=== PATIENT | female | born 1990 | race Caucasian/White ===

== ENCOUNTER → 2018-11-25 09:09 | Outpatient (CLI) | payer OTHER, SELFPAY ==
[2018-11-25 08:33] VITALS: BMI 33.7
[2018-11-25 09:39] LABS: Absolute Lymphocyte Count 1.62 X10^3/ul (0.83-4.51); Absolute Neutrophil Count 7.5 X10^3/uL (2.0-7.7); Basophil# 0.03 X10^3/uL; Basophil% 0.3 % (0-1); Eosinophil# 0.05 X10^3/uL; Eosinophils% 0.5 % (0-5); Hematocrit 38.5 % (37-47); Hemoglobin 13.4 g/dl (12.0-15.0); Lymphocyte # 1.62 X10^3/ul (4.0); Lymphocyte % 16.4 % (19-41); Mean Corp Hgb Conc 34.8 g/gl (32-36); Mean Corpuscular Hgb 30.8 pg (27.0-32.0); Mean Corpuscular Volume 88.5 fL (81-99); Mean Platelet Vol. 10.3 fl (6.2-12.0); Monocyte# 0.61 X10^3/uL; Monocyte% 6.2 % (0-10); Neutrophil # 7.54 X10^3/uL (2.7-7.7); Neutrophil % 76.4 % (47-70); Platelet Count 302 K/mm3 (150-450); RBC Distribution Width CV 11.7 % (11.6-14.6); RBC Distribution Width SD 37.3 fl (35.1-43.9); Red Blood Count 4.35 M/mm3 (4.2-5.4); White Blood Count 9.9 K/mm3 (4.4-11.0)
[2018-11-25 09:42] LABS: POSITIVE COUNT NO; POSITIVE DIFFERENTIAL NO; POSITIVE MORPHOLOGY NO
[2018-11-25 10:58] LABS: HIV - WCH Non-Reactive (Nonreactive); Rubella IgG 41.7 IU/mL
[2018-11-25 20:00] LABS: Chlamydia Trachomatis by PCR Negative (Negative); Neisserai gonorrhoeae by PCR Negative (Negative); Probe Check PASS; Sample Adequacy Control PASS; Specimen Processing Control PASS
[2018-11-27 03:39] LABS: Rapid Plasmin Reagin (RPR) NONREACTIVE (NONREACTIVE)
[2018-11-27 12:13] LABS: HEPATITIS B SURFACE AG Negative (Negative)
[2018-11-28 14:36] LABS: HPV Reflexed? NOT INDICATED
== END ==
PROVIDERS: Referring Provider Obstetrics & Gynecology; Visit Provider Obstetrics & Gynecology
DX: Z34.90 Encounter for supervision of normal pregnancy, unspecified, unspecified trimester (principal); Z12.4 Encounter for screening for malignant neoplasm of cervix
CPT/HCPCS: 36415; 85025; 86592; 86703; 86762; 86850; 86900; 87340; 87491; 87591; 87624; 88175; G0145

== ENCOUNTER → 2019-04-13 12:27 | Outpatient (CLI) | payer OTHER, SELFPAY ==
[2019-04-13 11:38] VITALS: BMI 29.4
[2019-04-13 13:35] LABS: Absolute Lymphocyte Count 1.81 X10^3/uL (0.83-4.51); Absolute Neutrophil Count 10.4 X10^3/uL (2.0-7.7); Basophil# 0.04 X10^3/uL; Basophil% 0.3 % (0-1); Eosinophil# 0.05 X10^3/uL; Eosinophils% 0.4 % (0-5); Hematocrit 36.1 % (37-47); Hemoglobin 12.1 g/dL (12.0-15.0); Lymphocyte # 1.81 X10^3/ul (4.0); Lymphocyte % 13.8 % (19-41); Mean Corp Hgb Conc 33.5 g/dL (32-36); Mean Corpuscular Hgb 31.4 pg (27.0-32.0); Mean Corpuscular Volume 93.8 fL (81-99); Mean Platelet Vol. 10.1 fl (6.2-12.0); Monocyte# 0.73 X10^3/uL; Monocyte% 5.6 % (0-10); NRBC Flagged by Analyzer 0 % (0-5); Neutrophil # 10.41 X10^3/uL (2.7-7.7); Neutrophil % 79.3 % (47-70); Platelet Count 286 K/mm3 (150-450); RBC Distribution Width CV 12.2 % (11.6-14.6); RBC Distribution Width SD 41.8 fl (35.1-43.9); Red Blood Count 3.85 M/mm3 (4.2-5.4); White Blood Count 13.1 K/mm3 (4.4-11.0)
[2019-04-13 14:01] LABS: Glucose Challenge Gest 1H 50g 110 mg/dL (70-140)
== END ==
PROVIDERS: Referring Provider Obstetrics & Gynecology; Visit Provider Obstetrics & Gynecology
DX: Z34.90 Encounter for supervision of normal pregnancy, unspecified, unspecified trimester (principal)
CPT/HCPCS: 36415; 82950; 85025

== ENCOUNTER → 2019-06-10 16:11 | Outpatient (CLI) | payer OTHER, SELFPAY ==
[2019-06-10 14:01] VITALS: BMI 30.2
== END ==
PROVIDERS: Referring Provider Nurse Practitioner Women's Health; Visit Provider Nurse Practitioner Women's Health
DX: Z34.82 Encounter for supervision of other normal pregnancy, second trimester (principal)
CPT/HCPCS: 87081

== ENCOUNTER 2019-06-18 09:54 | Outpatient (CLI) | payer OTHER, SELFPAY ==
[2019-06-18 09:43] VITALS: BMI 33.3
[2019-06-18 10:15] LABS: Protein, Urine (Random) 8.1 mg/dL (<11.9); Protein:Creat Ratio 276 mg/g CRE (0-200)
[2019-06-18 11:10] LABS: Hematocrit 35.6 % (37-47); Hemoglobin 12.1 g/dL (12.0-15.0); Mean Corpuscular Hgb 31.6 pg (27.0-32.0); Mean Platelet Vol. 10.6 fl (6.2-12.0); Platelet Count 248 K/mm3 (150-450); RBC Distribution Width CV 12.8 % (11.6-14.6); RBC Distribution Width SD 43.5 fl (35.1-43.9); Red Blood Count 3.83 M/mm3 (4.2-5.4); White Blood Count 15.2 K/mm3 (4.4-11.0)
[2019-06-18 11:14] VITALS: BMI 33.1
[2019-06-18 11:31] LABS: Prothrombin Time (Protime)PT. 13.2 SECONDS (11.7-14.9)
[2019-06-18 11:39] LABS: AST(SGOT) 17 U/L (15-37); Alanine Aminotransfer ALT/SGPT 16 U/L (13-56); Creatinine, Serum 0.71 mg/dL (0.55-1.02); EST Glomerular Filtration Rate 103 mL/min (>60); Est Glom Filt Rate - Afr Amer 124 mL/min (>60); Estimated Creatinine Clearance 100.05 ml/min; Uric Acid 6.1 mg/dL (2.6-6.0)
--- NOTE | 2019-06-18 16:09 | OB.TRI.PN_ITS ---
Progress Notes Date of Service: 06/18/19 Progress Note: Patient presents for triage evaluation secondary to elevated blood pressure in the office. Normal blood pressures here in triage and normal labs negative proteinuria FHT: 120 Moderate variability reactive no decelerations category I tracing [place]: Irregular contractions Assessment and plan: Elevated blood pressure and reactive NST, reassuring maternal and status patient discharged to home to follow-up again next week. See problem list details for additional plan information. Laboratory Studies: Laboratory Tests 06/18/19 06/18/19 06/18/19 Range/Units 10:55 10:55 10:55 WBC 15.2 H (4.4-11.0) K/mm3 RBC 3.83 L (4.2-5.4) M/mm3 Hgb 12.1 (12.0-15.0) g/dL Hct 35.6 L (37-47) % MCV 93.0 (81-99) fL MCH 31.6 (27.0-32.0) pg MCHC 34.0 (32-36) g/dL RDW Std Deviation 43.5 (35.1-43.9) fl RDW Coeff of Sasha 12.8 (11.6-14.6) % Plt Count 248 (150-450) K/mm3 MPV 10.6 (6.2-12.0) fl PT 13.2 (11.7-14.9) SECONDS INR 1.0 APTT 27.0 (24.1-36.2) Seconds Creatinine 0.71 (0.55-1.02) mg/dL Estim Creat Clear Calc 100.05 ml/min Est GFR (MDRD) Af Amer 124 (>60) mL/min Est GFR (MDRD) Non-Af 103 (>60) mL/min Uric Acid 6.1 H (2.6-6.0) mg/dL AST 17 (15-37) U/L ALT 16 (13-56) U/L U Random Total Protein (<11.9) mg/dL Urine Creatinine (NO RANGE EST.) mg/dL Protein/Creatinin Ratio (0-200) mg/g CRE 06/18/19 Range/Units 09:55 WBC (4.4-11.0) K/mm3 RBC (4.2-5.4) M/mm3 Hgb (12.0-15.0) g/dL Hct (37-47) % MCV (81-99) fL MCH (27.0-32.0) pg MCHC (32-36) g/dL RDW Std Deviation (35.1-43.9) fl RDW Coeff of Sasha (11.6-14.6) % Plt Count (150-450) K/mm3 MPV (6.2-12.0) fl PT (11.7-14.9) SECONDS INR APTT (24.1-36.2) Seconds Creatinine (0.55-1.02) mg/dL Estim Creat Clear Calc ml/min Est GFR (MDRD) Af Amer (>60) mL/min Est GFR (MDRD) Non-Af (>60) mL/min Uric Acid (2.6-6.0) mg/dL AST (15-37) U/L ALT (13-56) U/L U Random Total Protein 8.1 (<11.9) mg/dL Urine Creatinine 29.30 (NO RANGE EST.) mg/dL Protein/Creatinin Ratio 276 H (0-200) mg/g CRE - Problem List (1) Elevated blood pressure affecting in third trimester, antepartum Status: Acute Comment: 06/18- to l and d for eval Multi Select Codes - Urinary/Genital Urinary/Genital CPT Codes: 85221-51 non-stress test Interp
== END 2019-06-18 10:25 | disposition home or self-care (01) ==
LOC: LABSPEC 09:54 → OBT 10:27
PROVIDERS: Referring Provider Obstetrics & Gynecology; Visit Provider Obstetrics & Gynecology
DX: O26.893 Other specified pregnancy related conditions, third trimester (principal); R03.0 Elevated blood-pressure reading, without diagnosis of hypertension; Z3A.00 Weeks of gestation of pregnancy not specified
CPT/HCPCS: 36415; 59025; 59050; 82565; 82570; 84156; 84450; 84460; 84550; 85027; 85610; 85730; 99218; G0378

== ENCOUNTER 2019-06-23 12:32 | Outpatient (CLI) | payer OTHER, SELFPAY ==
[2019-06-23 12:48] VITALS: BMI 33.5
[2019-06-23 13:11] LABS: Hematocrit 35.6 % (37-47); Hemoglobin 12.2 g/dL (12.0-15.0); Mean Corp Hgb Conc 34.3 g/dL (32-36); Mean Corpuscular Hgb 32.1 pg (27.0-32.0); Mean Corpuscular Volume 93.7 fL (81-99); Mean Platelet Vol. 10.6 fl (6.2-12.0); Platelet Count 237 K/mm3 (150-450); RBC Distribution Width CV 12.5 % (11.6-14.6); RBC Distribution Width SD 43.3 fl (35.1-43.9)
[2019-06-23 13:21] LABS: Protein, Urine (Random) < 6.0 mg/dL (<11.9); Protein:Creat Ratio 161 mg/g CRE (0-200)
[2019-06-23 13:26] LABS: Prothrombin Time (Protime)PT. 13.4 SECONDS (11.7-14.9)
[2019-06-23 13:27] LABS: Partial Thromboplast Time 27.8 Seconds (24.1-36.2)
[2019-06-23 13:30] LABS: AST(SGOT) 16 U/L (15-37); Alanine Aminotransfer ALT/SGPT 15 U/L (13-56); Creatinine, Serum 0.71 mg/dL (0.55-1.02); EST Glomerular Filtration Rate 103 mL/min (>60); Est Glom Filt Rate - Afr Amer 124 mL/min (>60); Estimated Creatinine Clearance 100.05 ml/min
[2019-06-23] MEDS: Acetaminophen 500 MG Tablet 1000 MG PO (13:39)
--- NOTE | 2019-06-23 15:07 | NURSING ---
Clarifying with pt that headache is not severe and is what prompted her to check blood pressure but that blood pressure of 140's/80's is what prompted her to seek treatment. Headache is resolved with tylenol and she states she feels fine to be discharged without being seen by MD. Dr. Macedo consulted and ok for pt discharge with blood pressure and labs WNL and headache resolved.
--- NOTE | 2019-06-26 01:05 | OB.TRI.PN ---
Progress Notes Date of Service: 06/23/19 Progress Note: elevate dbps in office and headache- resolved with tylenol, repeat nl bps and negative labs FHT: 130 Moderate variability reactive no decelerations category I tracing [place]: no regula Contractions a/p elevate dbps in and headache- nl labs and nl bps bhatt resolved reactive nst dc home Laboratory Studies: Laboratory Tests 06/23/19 06/23/19 06/23/19 Range/Units 13:00 13:00 13:00 WBC 14.0 H (4.4-11.0) K/mm3 RBC 3.80 L (4.2-5.4) M/mm3 Hgb 12.2 (12.0-15.0) g/dL Hct 35.6 L (37-47) % MCV 93.7 (81-99) fL MCH 32.1 H (27.0-32.0) pg MCHC 34.3 (32-36) g/dL RDW Std Deviation 43.3 (35.1-43.9) fl RDW Coeff of Sasha 12.5 (11.6-14.6) % Plt Count 237 (150-450) K/mm3 MPV 10.6 (6.2-12.0) fl PT 13.4 (11.7-14.9) SECONDS INR 1.0 APTT 27.8 (24.1-36.2) Seconds Creatinine 0.71 (0.55-1.02) mg/dL Estim Creat Clear Calc 100.05 ml/min Est GFR (MDRD) Af Amer 124 (>60) mL/min Est GFR (MDRD) Non-Af 103 (>60) mL/min Uric Acid 6.0 (2.6-6.0) mg/dL AST 16 (15-37) U/L ALT 15 (13-56) U/L U Random Total Protein (<11.9) mg/dL Urine Creatinine (NO RANGE EST.) mg/dL Protein/Creatinin Ratio (0-200) mg/g CRE 06/23/19 Range/Units 12:45 WBC (4.4-11.0) K/mm3 RBC (4.2-5.4) M/mm3 Hgb (12.0-15.0) g/dL Hct (37-47) % MCV (81-99) fL MCH (27.0-32.0) pg MCHC (32-36) g/dL RDW Std Deviation (35.1-43.9) fl RDW Coeff of Sasha (11.6-14.6) % Plt Count (150-450) K/mm3 MPV (6.2-12.0) fl PT (11.7-14.9) SECONDS INR APTT (24.1-36.2) Seconds Creatinine (0.55-1.02) mg/dL Estim Creat Clear Calc ml/min Est GFR (MDRD) Af Amer (>60) mL/min Est GFR (MDRD) Non-Af (>60) mL/min Uric Acid (2.6-6.0) mg/dL AST (15-37) U/L ALT (13-56) U/L U Random Total Protein < 6.0 (<11.9) mg/dL Urine Creatinine 32.30 (NO RANGE EST.) mg/dL Protein/Creatinin Ratio 161 (0-200) mg/g CRE Multi Select Codes - Urinary/Genital Urinary/Genital CPT Codes: 18425-98 non-stress test Interp
== END 2019-06-23 15:10 | disposition home or self-care (01) ==
PROVIDERS: Referring Provider Obstetrics & Gynecology; Visit Provider Obstetrics & Gynecology
DX: O26.899 Other specified pregnancy related conditions, unspecified trimester (principal); R03.0 Elevated blood-pressure reading, without diagnosis of hypertension; R51 Headache; Z3A.00 Weeks of gestation of pregnancy not specified
CPT/HCPCS: 36415; 59025; 59050; 82565; 82570; 84156; 84450; 84460; 84550; 85027; 85610; 85730; 99218; G0378

== ENCOUNTER → 2019-07-01 17:01 | Outpatient (CLI) | payer OTHER, SELFPAY ==
[2019-07-01 14:57] VITALS: BMI 34.0
[2019-07-01 17:46] LABS: Protein, Urine (Random) < 6.0 mg/dL (<11.9); Protein:Creat Ratio 109 mg/g CRE (0-200)
== END ==
PROVIDERS: Referring Provider Obstetrics & Gynecology; Visit Provider Obstetrics & Gynecology
DX: O16.3 Unspecified maternal hypertension, third trimester (principal)
CPT/HCPCS: 82570; 84156

== ENCOUNTER 2019-07-09 14:40 | Outpatient (CLI) | payer OTHER, SELFPAY ==
[2019-07-09 14:03] VITALS: BMI 34.0
[2019-07-09 14:47] VITALS: BMI 34.3
[2019-07-09 15:15] LABS: Hematocrit 38.4 % (37-47); Hemoglobin 12.9 g/dL (12.0-15.0); Mean Corp Hgb Conc 33.6 g/dL (32-36); Mean Corpuscular Hgb 31.2 pg (27.0-32.0); Mean Platelet Vol. 10.8 fl (6.2-12.0); Platelet Count 249 K/mm3 (150-450); RBC Distribution Width CV 12.7 % (11.6-14.6); RBC Distribution Width SD 43.4 fl (35.1-43.9); Red Blood Count 4.13 M/mm3 (4.2-5.4); White Blood Count 13.9 K/mm3 (4.4-11.0)
[2019-07-09 15:26] LABS: Prothrombin Time (Protime)PT. 13.1 SECONDS (11.7-14.9)
[2019-07-09 15:27] LABS: Partial Thromboplast Time 27.6 Seconds (24.1-36.2); Protein, Urine (Random) 9.3 mg/dL (<11.9); Protein:Creat Ratio 260 mg/g CRE (0-200)
[2019-07-09 15:43] LABS: AST(SGOT) 17 U/L (15-37); Alanine Aminotransfer ALT/SGPT 14 U/L (13-56); Creatinine, Serum 0.74 mg/dL (0.55-1.02); EST Glomerular Filtration Rate 99 mL/min (>60); Est Glom Filt Rate - Afr Amer 119 mL/min (>60); Estimated Creatinine Clearance 95.99 ml/min; Uric Acid 6.7 mg/dL (2.6-6.0)
--- NOTE | 2019-07-12 03:52 | OB.TRI.PN ---
Progress Notes Date of Service: 07/09/19 Progress Note: Patient presents for triage evaluation secondary to elevated blood pressures in the office FHT: 130 Moderate variability reactive no decelerations category I tracing [place]: no reg contractions Assessment and plan: Repeat blood pressures in the labs within normal limits negative proteinuria. Elevated blood pressures in reactive NST, reassuring maternal and status patient discharged to home to follow-up as scheduled expectant management. See problem list details for additional plan information. Laboratory Studies: Laboratory Tests 07/09/19 07/09/19 07/09/19 Range/Units 15:00 15:00 15:00 WBC (4.4-11.0) K/mm3 RBC (4.2-5.4) M/mm3 Hgb (12.0-15.0) g/dL Hct (37-47) % MCV (81-99) fL MCH (27.0-32.0) pg MCHC (32-36) g/dL RDW Std Deviation (35.1-43.9) fl RDW Coeff of Sasha (11.6-14.6) % Plt Count (150-450) K/mm3 MPV (6.2-12.0) fl PT 13.1 (11.7-14.9) SECONDS INR 1.0 APTT 27.6 (24.1-36.2) Seconds Creatinine 0.74 (0.55-1.02) mg/dL Estim Creat Clear Calc 95.99 ml/min Est GFR (MDRD) Af Amer 119 (>60) mL/min Est GFR (MDRD) Non-Af 99 (>60) mL/min Uric Acid 6.7 H (2.6-6.0) mg/dL AST 17 (15-37) U/L ALT 14 (13-56) U/L U Random Total Protein 9.3 (<11.9) mg/dL Urine Creatinine 35.80 (NO RANGE EST.) mg/dL Protein/Creatinin Ratio 260 H (0-200) mg/g CRE 07/09/19 Range/Units 15:00 WBC 13.9 H (4.4-11.0) K/mm3 RBC 4.13 L (4.2-5.4) M/mm3 Hgb 12.9 (12.0-15.0) g/dL Hct 38.4 (37-47) % MCV 93.0 (81-99) fL MCH 31.2 (27.0-32.0) pg MCHC 33.6 (32-36) g/dL RDW Std Deviation 43.4 (35.1-43.9) fl RDW Coeff of Sasha 12.7 (11.6-14.6) % Plt Count 249 (150-450) K/mm3 MPV 10.8 (6.2-12.0) fl PT (11.7-14.9) SECONDS INR APTT (24.1-36.2) Seconds Creatinine (0.55-1.02) mg/dL Estim Creat Clear Calc ml/min Est GFR (MDRD) Af Amer (>60) mL/min Est GFR (MDRD) Non-Af (>60) mL/min Uric Acid (2.6-6.0) mg/dL AST (15-37) U/L ALT (13-56) U/L U Random Total Protein (<11.9) mg/dL Urine Creatinine (NO RANGE EST.) mg/dL Protein/Creatinin Ratio (0-200) mg/g CRE - Problem List (1) Elevated blood pressure affecting in third trimester, antepartum Status: Acute
== END 2019-07-09 16:00 | disposition home or self-care (01) ==
LOC: WPOUT 14:44 → WP 14:46
PROVIDERS: Nurse Practitioner Women's Health; Referring Provider Obstetrics & Gynecology; Visit Provider Obstetrics & Gynecology
DX: O26.893 Other specified pregnancy related conditions, third trimester (principal); R03.0 Elevated blood-pressure reading, without diagnosis of hypertension; Z3A.00 Weeks of gestation of pregnancy not specified
CPT/HCPCS: 36415; 59025; 59050; 82565; 82570; 84156; 84450; 84460; 84550; 85027; 85610; 85730; 99218; G0378

== ENCOUNTER 2019-07-12 11:50 | Inpatient (IN) | payer OTHER, SELFPAY ==
[2019-07-12 10:02] VITALS: BMI 34.7
[2019-07-12 10:36] LABS: Protein, Urine (Random) 23.7 mg/dL (<11.9); Protein:Creat Ratio 137 mg/g CRE (0-200)
[2019-07-12 12:00] VITALS: BMI 34.3
[2019-07-12] MEDS: Lactated Ringers 1,000 ML 50 ML IV (12:20)
[2019-07-12] MEDS: Oxytocin 30 units/NS 500 ml 30 UNITS/500 ML IV.SOLN IV (12:26)
[2019-07-12 12:52] LABS: Absolute Lymphocyte Count 2.01 X10^3/uL (0.83-4.51); Absolute Neutrophil Count 11.4 X10^3/uL (2.0-7.7); Basophil# 0.06 X10^3/uL; Basophil% 0.4 % (0-1); Eosinophil# 0.05 X10^3/uL; Eosinophils% 0.3 % (0-5); Hematocrit 37.5 % (37-47); Hemoglobin 12.6 g/dL (12.0-15.0); Lymphocyte # 2.01 X10^3/ul (4.0); Mean Corp Hgb Conc 33.6 g/dL (32-36); Mean Corpuscular Hgb 31.9 pg (27.0-32.0); Mean Corpuscular Volume 94.9 fL (81-99); Mean Platelet Vol. 11.5 fl (6.2-12.0); Monocyte# 0.75 X10^3/uL; Monocyte% 5.2 % (0-10); NRBC Flagged by Analyzer 0 % (0-5); Neutrophil # 11.36 X10^3/uL (2.7-7.7); Neutrophil % 79.1 % (47-70); Platelet Count 234 K/mm3 (150-450); RBC Distribution Width CV 12.8 % (11.6-14.6); RBC Distribution Width SD 44.3 fl (35.1-43.9); Red Blood Count 3.95 M/mm3 (4.2-5.4); White Blood Count 14.4 K/mm3 (4.4-11.0)
[2019-07-12] MEDS: Lactated Ringers 500 ML 999 ML IV ×2 (14:07→15:47)
[2019-07-12] MEDS: fentaNYL-bupivacaine (epidural) 100 ML BAG EPIDURAL (15:31)
[2019-07-12] MEDS: Oxytocin 30 units/NS 500 ml 30 UNITS/500 ML IV.SOLN 334 UNITS IV (17:00)
[2019-07-12 19:43] VITALS: BP 130/82; PULSE 96; RESP 18; TEMP 37.6; O2SAT 98
--- NOTE | 2019-07-12 19:54 | NURSING ---
Epidural cath removed, blue tip intact.
[2019-07-12] MEDS: Naproxen 250 MG Tablet 500 MG PO (21:28)
[2019-07-12] MEDS: Dibucaine 30 GM Tube 1 APPLIC TOPICAL (21:33)
[2019-07-12] MEDS: Acetaminophen 500 MG Tablet 1000 MG PO (22:55)
[2019-07-13 00:35] VITALS: BP 135/62; PULSE 80; RESP 16; TEMP 36.8
[2019-07-13 03:18] VITALS: BP 136/79; PULSE 72; RESP 16; TEMP 37
--- NOTE | 2019-07-13 04:57 | HP.PCM_ITS ---
- Problem List (1) Elevated blood pressure affecting in third trimester, antepartum Status: Acute (2) General counselling and advice on contraception Status: Acute Comment: IUD 6 wk pp-No prior auth needed (3) Status: Acute Qualifiers: Comment: carrier screening declined. genetic, ntd declined. normal anatomy (4) Supervision of normal Status: Acute Qualifiers: Comment: PRR MILADY 07/08/19 gender surprise PC Andrea Kareem (5) Chronic migraine Status: Chronic History Date of Admission: 07/12/19 Final MILADY: 07/08/19 Gestational age: 40 Weeks and 5 Days History of this : This is a 29 year-old, at 40 weeks gestational age presents for IOL sec GHTN and postdates. Medical History: Medical History (Last Reviewed 07/12/19 @ 10:02 by Bella Acevedo) Chronic migraine (Chronic) G43.709 Surgical History: Surgical History (Last Reviewed 07/12/19 @ 10:02 by Bella Acevedo) [place] teeth extracted K08.409 Allergies hydrocodone bitartrate [From Vicodin] Adverse Reaction (Verified 07/12/19 10:02) Nausea Home Medications: Home Medications vitamin#30 30 mg iron-10 mg iron-folic acid 1 mg-omg3 capsule 1 cap PO DAILY cap 11/25/18 promethazine 12.5 mg tablet 12.5 mg PO Q6H PRN #120 tab 11/25/18 Smoking Status: Never smoker NST - FHR Rate Baby A Baseline: 130 Variability:: Moderate Accelerations:: 15 x 15 Decelerations:: None NST Reactive:: Yes FHR Category:: Category I Uterine Activity:: irregular History Past Pregnancies: Past Pregnancies Pregancy History 2 Elective abortions Hx Para 1 Spontaneous abortions Hx # Term Pregnancies Ectopic pregnancies Hx # Pregnancies Multiple births # of living children Past Pregnancies Del. Date Name GA/Weeks Outcome Route Bth Weight Gen Labor Lgth Anesthesia Del Locatn Provider FOB 02/18/17 Gregoria 37 live - full term 6lbs Fema le epidural [facility] Kareem Delivery Date: 02/18/17 On 09/02/18 @ 11:17 Kaley Watkins No issues during or delivery. Labs: Mom's Current Diagnoses Gestational [-induced] hypertension without significant proteinuria, unspecified trimester 07/12/19 Mom's Labs & Results 07/12/19 07/12/19 07/12/19 10:14 12:20 12:20 WBC 14.4 H RBC 3.95 L Hgb 12.6 Hct 37.5 MCV 94.9 MCH 31.9 MCHC 33.6 RDW Std Deviation 44.3 H RDW Coeff of Sasha 12.8 Plt Count 234 MPV 11.5 Immature Gran % (Auto) 1.000 H Neut % (Auto) 79.1 H Lymph % (Auto) 14.0 L [place] % (Auto) 5.2 Eos % (Auto) 0.3 Baso % (Auto) 0.4 Absolute Neuts (auto) 11.4 H Absolute Lymphs (auto) 2.01 Nucleated RBC % 0 U Random Total Protein 23.7 H Urine Creatinine 173.00 Protein/Creatinin Ratio 137 Blood Type A POSITIVE Antibody Screen NEGATIVE Course Did the patient receive Yes care? Labs Blood Type: A RH: POSITIVE RPR/VDRL/Syphilis Reactive Rubella status Immune HbSAg Negative Date Done: 11/25/18 Chlamydia Negative Gonorrhea Negative HIV/AIDS Non-Reactive Group B Strep: Negative Current Obstetrical History Gestational Diabetes No Incompetent Cervix No Infertility No IUGR No Macrosomia No Hypertension/Pre-eclampsia Yes Placenta Previa/Abruption No PTL/PROM No Uterine anomaly No Oligohydramnios No Polyhydramnios No Multiple gestation No Past Medical History Asthma Yes Diabetes No Hypertension No Heart disease No Mitral valve prolapse No Neurologic/Seizure disorder/ Yes Migraines Kidney disease No Liver disease No Varicosities No Clotting disorders/Hx of DVT No Thyroid Dysfunction No Other medical diseases No Psychiatric disorders No Major trauma No Abnormal PAP smear No Sleep apnea No Mammogram in the last 2 years No Social History Marital Status: Alleged father Kareem Hx Smoking No Smoking Status Never smoker Expected Delivery Method: Spontaneous Vaginal Review of Systems Constitutional: Denies: Fever, Malaise Eyes: Denies: Blurred vision, Vision Change HEENT: Denies: Head Aches, Visual Changes Cardiovascular: Denies: Chest Pain, Palpitations Respiratory: Denies: Cough, Shortness of Breath, Wheezing Gastrointestinal: Denies: Abdominal Pain, Diarrhea, Nausea, Vomiting Genitourinary: Denies: Dysuria, Hematuria Musculoskeletal: Denies: Joint Pain, Muscle pain Skin: Denies: Lesions, Rash Neurological: Denies: Blurred vision, Focal weakness, Headaches Psychiatric: Denies: Anxiety, Depression Endocrine: Denies: Heat/ Cold Intolerance Hematologic/ Lymphatic: Denies: Easy Bruising, Easy Bleeding Physical Exam Vitals: Vital Signs Temp Pulse Resp BP Pulse Ox 98.6 F 72 16 136/79 H 98 07/13/19 03:18 07/13/19 03:18 07/13/19 03:18 07/13/19 03:18 07/12/19 19:43 General: Alert, Cooperative, No apparent distress HEENT: Atraumatic, Normocephalic. Negative for: Thyromegaly, Lymphadenopathy Cardiovascular: Regular rate Lungs: Normal air movement Abdomen: Soft, Non Tender, Gravid Neurological: Deep Tendon Reflexes 2+/4 and Symmetrical, Neuro grossly intact. Negative for: Clonus [employer] TECHNICIAN: Normal external genitalia. Negative for: Vulvar lesions Estimated gestational size: Appropriate for gestational size Presentation: Cephalic Assessment/Plan All Active Problems (Last Reviewed 07/12/19 @ 10:02 by Bella Acevedo) Elevated blood pressure affecting in third trimester, antepartum (Acute) General counselling and advice on contraception (Acute) (Acute) Supervision of normal (Acute) Elevated blood pressure affecting in third trimester, antepartum (Resolved) This is a 29 year-old, at 40 weeks gestational age presents for IOL GHTN gbs neg preeclampsia labs WNL pit IOL epi PRN
--- NOTE | 2019-07-13 04:59 | PCM.OPRPT ---
Problem List (1) Elevated blood pressure affecting in third trimester, antepartum Status: Acute (2) General counselling and advice on contraception Status: Acute Comment: IUD 6 wk pp-No prior auth needed (3) Status: Acute Qualifiers: Comment: carrier screening declined. genetic, ntd declined. normal anatomy (4) Supervision of normal Status: Acute Qualifiers: Comment: PRR MILADY 07/08/19 gender surprise PC Andrea Kareem (5) Chronic migraine Status: Chronic Vaginal Delivery Maternal Presentation: Medically Indicated Induction iol ghtn 30w4d Method of Induction: Pitocin Medical Reason for Induction: Gestational Hypertension Amniotic Membrane Rupture Type: Spontaneous Amniotic Fluid Description: Clear Final MILADY: 07/08/19 Gestational age: 40 Weeks and 5 Days Date of Procedure: 07/12/19 Pre-Operative Diagnosis: iol ghtn Post-Operative Diagnosis: same plus bradycardia Surgery/ Procedure Performed: Vacuum Assisted Vaginal Delivery Type of Anesthesia: Epidural Description of Procedure: Patient was induced secondary to elevated blood pressures in the office and patient was at 40 weeks 4 days. Pitocin was started and patient underwent epidural anesthesia during which she had spontaneous rupture of membranes. Patient made quick cervical change to complete dilation immediately after the epidural and heart rate experienced recurrent decelerations and a bradycardia in the 70s and therefore the decision for immediate operative vaginal delivery was made. Vacuum was applied and the +2 station 2 pop offs with 3 pulls were made in a right medial lateral episiotomy was cut to shorten second stage of labor. Head delivered JACQUE without complication a loose nuchal cord x1 was easily reduced over the 's head and the anterior and posterior shoulders were delivered without complication the rest the delivered on maternal abdomen. Cord was clamped and cut with minimal delayed cord clamping but spontaneous crying and reassuring status were noted upon evaluation with pediatric support present. Cord gases were sent and cord pH arterial was 7.11 and venous was 7.18. Episiotomy was noted to have second-degree perineal laceration equivalents and therefore this was repaired in the usual fashion with 3-0 Vicryl Rapide EBL was 200 cc placenta delivered spontaneously immediately following was noted to be intact with three-vessel cord with no abnormality seen grossly. Patient and tolerated the delivery well. Presentation: JACQUE Placental Delivery Description: Spontaneous Placenta Disposition: [facility] Cord Vessel Description: 3 Vessels Nuchal Cord Compression: With compression Cord Entanglement: Around neck x 1, loose Estimated Blood Loss: 200 Infant A gender: Female (1 minute): 8 (5 minute): 9 Episiotomy Description: Right Mediolateral Laceration: Perineal Extension/lac, 2nd degree Medications given after delivery: IV Pitocin Complications: None Multi Select Codes - Urinary/Genital Urinary/Genital CPT Codes: 58602 Vaginal Delivery global pkg - vacuum assisted delivery
[2019-07-13] MEDS: Naproxen 250 MG Tablet 500 MG PO ×3 (05:42→22:32)
[2019-07-13] MEDS: Senna/Docusate Sodium 1 Tablet PO (05:43)
[2019-07-13] MEDS: Acetaminophen 500 MG Tablet 1000 MG PO ×2 (07:30→16:14)
--- NOTE | 2019-07-13 07:46 | PCM.PN.OB ---
Subjective: doing well no complaints pain controlled no CP SOB N V ambulating well tolerating po lochia moderate, going well - Physical Exam Vitals/I&O's: Vital Signs Temp Pulse Resp BP Pulse Ox 98.6 F 72 16 136/79 H 98 07/13/19 03:18 07/13/19 03:18 07/13/19 03:18 07/13/19 03:18 07/12/19 19:43 Oxygen Delivery Method Room Air Weight: 200 lb 2.876 oz Body Mass Index (BMI) 34.3 Intake and Output for Last 24 Hours 07/11/19 07/12/19 07/13/19 23:59 23:59 23:59 Intake Total 1843.50 / 1843.50 Output Total 600 / 600 Balance 1243.50 / 1243.50 General: Alert, Oriented x3 Abdomen: Non Tender, Non-Distended, - - FF below U Laboratory Results 07/12/19 10:14: U Random Total Protein 23.7 H, Urine Creatinine 173.00, Protein/Creatinin Ratio 137 07/12/19 12:20: WBC 14.4 H, RBC 3.95 L, Hgb 12.6, Hct 37.5, MCV 94.9, MCH 31.9, MCHC 33.6, RDW Std Deviation 44.3 H, RDW Coeff of Sasha 12.8, Plt Count 234, MPV 11.5, Immature Gran % (Auto) 1.000 H, Neut % (Auto) 79.1 H, Lymph % (Auto) 14.0 L, [place] % (Auto) 5.2, Eos % (Auto) 0.3, Baso % (Auto) 0.4, Absolute Neuts (auto) 11.4 H, Absolute Lymphs (auto) 2.01, Nucleated RBC % 0 07/12/19 12:20: Blood Type A POSITIVE, Antibody Screen NEGATIVE Current Medications Acetaminophen (Tylenol) 1,000 mg PO Q8H PRN PRN PRN Reason: Pain Score 1-3/10 Last Admin: 07/13/19 07:30 Dose: 1,000 mg Documented by: Bisacodyl (Dulcolax) 10 mg RECTAL UD PRN PRN Reason: If no BM Dibucaine (Dibucaine) 1 applic TOPICAL TID PRN PRN; Protocol PRN Reason: Discomfort Last Admin: 07/12/19 21:33 Dose: 1 applic Documented by: Hydrocortisone (Hytone) 1 applic TOPICAL TID PRN PRN; Protocol PRN Reason: Discomfort Methylergonovine Maleate (Methergine) 0.2 mg IM X1 PRN PRN Reason: Excess bleeding/uterine atony Naproxen (Naprosyn) 500 mg PO Q8H PRN PRN PRN Reason: Pain Score 1-3/10 Last Admin: 07/13/19 05:42 Dose: 500 mg Documented by: Ondansetron HCl (Zofran) 4 mg IV Q4H PRN PRN PRN Reason: Nausea Oxycodone HCl (Oxyir) 5 - 10 mg PO Q4H PRN PRN PRN Reason: Pain Score 4-10/10 Senna/Docusate Sodium (Senokot-S, Bita-Colace) 1 - 2 tablet PO DAILY PRN PRN PRN Reason: Constipation Last Admin: 07/13/19 05:43 Dose: 1 tablet Documented by: Simethicone (Mylicon) 80 mg PO PCHS PRN PRN Reason: Indigestion/Stomach pain Sodium Chloride () 5 - 15 ml IV UD PRN PRN Reason: SALINE FLUSH Medical Necessity - Tobacco Use Smoking Status: Never smoker Assessment/Plan All Active Problems (Last Reviewed 07/12/19 @ 10:02 by Bella Acevedo) Elevated blood pressure affecting in third trimester, antepartum (Acute) General counselling and advice on contraception (Acute) (Acute) Supervision of normal (Acute) Elevated blood pressure affecting in third trimester, antepartum (Resolved) s/p PPD # 1 1. routine post delivery care 2. breast feeding- support given 3. rh positive 4. rubella immune 5. Encouraged stool softener.
[2019-07-13 09:00] VITALS: BP 137/81; PULSE 83; RESP 18; TEMP 36.6; O2SAT 99
[2019-07-13 12:59] VITALS: BP 127/80; PULSE 73; RESP 16; TEMP 36.7
[2019-07-13 16:23] VITALS: BP 137/90; PULSE 84; RESP 14; TEMP 36.7; O2SAT 100
[2019-07-13 19:50] VITALS: BP 142/88; PULSE 90; RESP 18; TEMP 36.6
[2019-07-14] VITALS (7 sets, daily range): BP systolic 116–128; BP diastolic 80–87; PULSE 76–86; RESP 14–18; TEMP 36.4–36.5; O2SAT 98–99
[2019-07-14] MEDS: Naproxen 250 MG Tablet 500 MG PO (06:31)
--- NOTE | 2019-07-14 08:18 | PCM.PN.OB ---
Subjective: doing well no complaints pain controlled no CP SOB N V ambulating well tolerating po lochia moderate, going well - Physical Exam Vitals/I&O's: Vital Signs Temp Pulse Resp BP Pulse Ox 97.6 F L 86 16 116/86 H 98 07/14/19 07:22 07/14/19 07:22 07/14/19 07:22 07/14/19 07:22 07/14/19 07:22 Oxygen Delivery Method Room Air Weight: 200 lb 2.876 oz Body Mass Index (BMI) 34.3 Intake and Output for Last 24 Hours 07/12/19 07/13/19 07/14/19 23:59 23:59 23:59 Intake Total 1843.50 / 1843.50 Output Total 600 / 600 Balance 1243.50 / 1243.50 General: Alert, Oriented x3 Abdomen: Soft, Non Tender, Non-Distended, - - FF below U Current Medications Acetaminophen (Tylenol) 1,000 mg PO Q8H PRN PRN PRN Reason: Pain Score 1-310 Last Admin: 07/13/19 16:14 Dose: 1,000 mg Documented by: Bisacodyl (Dulcolax) 10 mg RECTAL UD PRN PRN Reason: If no BM Dibucaine (Dibucaine) 1 applic TOPICAL TID PRN PRN; Protocol PRN Reason: Discomfort Last Admin: 07/12/19 21:33 Dose: 1 applic Documented by: Hydrocortisone (Hytone) 1 applic TOPICAL TID PRN PRN; Protocol PRN Reason: Discomfort Methylergonovine Maleate (Methergine) 0.2 mg IM X1 PRN PRN Reason: Excess bleeding/uterine atony Naproxen (Naprosyn) 500 mg PO Q8H PRN PRN PRN Reason: Pain Score 1-3/10 Last Admin: 07/14/19 06:31 Dose: 500 mg Documented by: Ondansetron HCl (Zofran) 4 mg IV Q4H PRN PRN PRN Reason: Nausea Oxycodone HCl (Oxyir) 5 - 10 mg PO Q4H PRN PRN PRN Reason: Pain Score 4-10/10 Senna/Docusate Sodium (Senokot-S, Bita-Colace) 1 - 2 tablet PO DAILY PRN PRN PRN Reason: Constipation Last Admin: 07/13/19 05:43 Dose: 1 tablet Documented by: Simethicone (Mylicon) 80 mg PO PCHS PRN PRN Reason: Indigestion/Stomach pain Sodium Chloride () 5 - 15 ml IV UD PRN PRN Reason: SALINE FLUSH Medical Necessity - Tobacco Use Smoking Status: Never smoker Assessment/Plan All Active Problems (Last Reviewed 07/12/19 @ 10:02 by Bella Acevedo) Elevated blood pressure affecting in third trimester, antepartum (Acute) General counselling and advice on contraception (Acute) (Acute) Supervision of normal (Acute) Elevated blood pressure affecting in third trimester, antepartum (Resolved) s/p VAVD PPD # 2 1. routine post delivery care 2. breast feeding- support given 3. rh positive 4. rubella immune 5. stool softener encouraged 6. home today
--- NOTE | 2019-07-14 08:19 | DCINST_ITS ---
Additional Instructions: If you experience any of the following, contact your healthcare provider. * Bleeding that soaks a pad every hour for 2 hours * Fever 100.4 or higher * Unrelieved incision or abdominal pain * Swelling, redness, discharge or bleeding from your incision or episiotomy site * Your incision begins to separate * Problems urinating (including inability to urinate or burning while urinating). * Visual changes * Severe headache * Flu-like symptoms * Pain or redness in one of both of your breasts * Pain, warmth, tenderness or swelling in your legs, especially the calf area * Frequent nausea and vomiting * Symptoms of depression or anxiety If you experience any of the following, call 911 or go to the nearest Emergency Room. * Chest pain * Problems breathing * Seizure activity * Partial or complete paralysis of a body part, slurred speech, weakness or drooping of the face, or a sudden inability to walk or hold your balance Allergies/Adverse Reactions: Allergies hydrocodone bitartrate [From Vicodin] Adverse Reaction (Verified 07/12/19 10:02) Nausea Medications to take at Discharge vitamin#30 30 mg iron-10 mg iron-folic acid 1 mg-omg3 capsule 1 cap PO DAILY cap 11/25/18 promethazine 12.5 mg tablet 12.5 mg PO Q6H PRN #120 tab 11/25/18 Primary Care Physician: Care Physician,No Primary [Primary Care Provider] - Test Results: Test results from this visit will be discussed in further detail at your follow- up appointment, if applicable.
--- NOTE | 2019-07-14 08:19 | PCM.DCVAG ---
Additional Instructions: If you experience any of the following, contact your healthcare provider. Bleeding that soaks a pad every hour for 2 hours Fever 100.4 or higher Unrelieved incision or abdominal pain Swelling, redness, discharge or bleeding from your incision or episiotomy site Your incision begins to separate Problems urinating (including inability to urinate or burning while urinating). Visual changes Severe headache Flu-like symptoms Pain or redness in one of both of your breasts Pain, warmth, tenderness or swelling in your legs, especially the calf area Frequent nausea and vomiting Symptoms of depression or anxiety If you experience any of the following, call 911 or go to the nearest Emergency Room. Chest pain Problems breathing Seizure activity Partial or complete paralysis of a body part, slurred speech, weakness or drooping of the face, or a sudden inability to walk or hold your balance Allergies/Adverse Reactions: Allergies hydrocodone bitartrate [From Vicodin] Adverse Reaction (Verified 07/12/19 10:02) Nausea Medications to take at Discharge vitamin#30 30 mg iron-10 mg iron-folic acid 1 mg-omg3 capsule 1 cap PO DAILY cap 11/25/18 promethazine 12.5 mg tablet 12.5 mg PO Q6H PRN #120 tab 11/25/18 Primary Care Physician: Care Physician,No Primary [Primary Care Provider] - Test Results: Test results from this visit will be discussed in further detail at your follow-up appointment, if applicable.
[2019-07-14] MEDS: Senna/Docusate Sodium 1 Tablet PO (09:39)
--- NOTE | 2019-07-14 13:25 | CASEMGMT ---
Social Work Assessment - brief Labor and Delivery Unit Patient Address: [address] [place] [address] Phone number: [phone] Date of Referral/Notification: 07.13.2019 Time of Referral: 343 Referred By: Dr. Kaur Reason for Referral: maternal history of depression Date of Intervention: 07.14.2019 Time of Intervention: 1035 Informant: Medical record and mother of baby (MOB) Perlita Barlow History: SALVADOR is a 29-year-old female, to father of baby (FOB) Kareem Barlow. for 4 years and together for a total of 10. MOB denies any form of abuse in this relationship. SALVADOR is G2, P1 to 2 after delivering infant this admission. [place] , Courtney Barlow, was born on 07.12.2019. Also, at home the parents' older child, Gregoria Barlow, born 02.18.2017. 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 The baby?s hcpbyr-kz-zmd will babysit 4 days a week and then a separate neurosurgeon for the 5th day. FOB works at [employer] in the Agricultural sector. SALVADOR reports history of depression, eating disorder, and self-injury as a teen. MOB reports to no self-injury since high school years, no thoughts or desires to do so either. SALVADOR endorses depression after Gregoria was born, describing self as crying all the time, feeling overwhelmed and desires to just walk away from parenting. MOB reports had some feelings of hopelessness and helplessness at that time. No specific thoughts, planning or intent to kill herself, but a desire not to be around anymore. MOB reports symptoms surfaced around 6 weeks . MOB reports after an episode of feeling overwhelmed while holding the baby and having to put baby down and walk away to regroup, this was the factor that prompted MOB to get some help from OBGYN. SALVADOR reports she was on antidepressant for about a year and then off and has been doing fine. SALVADOR did have several outside stressors in that timeframe as well, which MOB believes impacted her emotional health. Additionally, SALVADOR reports that FOB did not really understand the the first time around, so level of support from the FOB was at time tenuous. MOB reports she did feel a significant improvement in mood and anxiety while on the medicine. MOB reports her sister is currently in counseling regarding depression and MOB?s mother has a history of depression. NO substance use history for MOB reported or indicted. No drug screening done during or at delivery. Assessment: No reported or identified concerns regarding infant supplies, transportation, or finances at this time. MOB reports to be feeling okay right now and to feel to be managing her mood/anxiety okay. MOB reports her is taking some time off work, which is different than last time and that FOB is also more understanding of mood issues this time around. MOB reports her mother looks out for MOB and is a support. MOB reports to feel she has an adequate support system in place. MOB reports plan to wait and see about need for medication right now, knowing that MOB is at risk for development of PPD or PPA again based on history. Explored with MOB as to what needs to be happening for MOB to get help, as it is important to have this threshold identified early on, to reduce avoidance and denial of need for different types of support. MOB reports if starts to cry a lot, mood starts impacting desire to care for the kids then this would be the time that MOB would consider going back on medicine; or if starts having thoughts of running away again. MOB reports to trust her OBGYN and would speak with the doctor about this. MOB is aware of some coping strategies to help with anxiety, as has been in counseling in the past though admits there is not a lot MOB has found to help MOB when in full on anxiety mode. MOB reports has had some benefit with grounding techniques in the past. MOB reports to feel safe currently, no thoughts/plans/intent for suicide,no thoughts of harm to others identified, and to feel that her emotional health is okay. MOB reports to also know this time around the importance of letting others help and know what is going on. MOB reports to be developing a connection to the baby and is hopeful to be able to take 12 weeks off work. This insurance underwriter sales observed bonding cues in MOB as MOB was attentive to baby, touching baby, and talking to baby. 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 MOB accepted resource packet offered on the topic of mood and anxiety disorders. Also talked with MOB about book reading or moms in the period. Encouraged MOB that she can share packet with the FOB, and also introduced the idea of fathers being at risk for mood and anxiety issues in the period. Plan: MOB and baby to home. MOB will have help from family at home going. MOB reports to feel emotional health is okay at this time and reports plan to seek out help from OBGYN should symptoms arise or start to impact care of children. No further needs requested or indicated. -PRESTON Clemons, FITNESS COACH
--- NOTE | 2019-07-14 15:22 | NURSING ---
reviewed student charting and it is complete
== END 2019-07-14 12:20 | disposition home or self-care (01) | DRG 807 ==
LOC: WP 11:53
PROVIDERS: Admitting Provider Obstetrics & Gynecology; Referring Provider Obstetrics & Gynecology; Visit Provider Obstetrics & Gynecology
DX: O13.4 Gestational [pregnancy-induced] hypertension without significant proteinuria, complicating childbirth (principal); O69.1XX0 Labor and delivery complicated by cord around neck, with compression, not applicable or unspecified; O76 Abnormality in fetal heart rate and rhythm complicating labor and delivery; O70.1 Second degree perineal laceration during delivery; O99.52 Diseases of the respiratory system complicating childbirth; J45.909 Unspecified asthma, uncomplicated; Z3A.40 40 weeks gestation of pregnancy; Z37.0 Single live birth
CPT/HCPCS: 59050; 82570; 84156; 85025; 86850; 86900; 86901; 99218; J7120; G0378; J2405

== ENCOUNTER → 2021-03-27 16:41 | Outpatient (CLI) | payer OTHER, SELFPAY ==
[2020-12-29 14:38] VITALS: BMI 34.3
[2021-03-27 18:20] LABS: Internal QC Validated? YES +Cl - CLEAR BKGD; Pregnancy, Urine Negative Negative
== END ==
PROVIDERS: Referring Provider Dermatology; Visit Provider Dermatology
DX: Z79.899 Other long term (current) drug therapy (principal); L70.0 Acne vulgaris; L70.5 Acne excoriee
CPT/HCPCS: 36415; 81025

== ENCOUNTER 2021-09-05 15:25 | Outpatient (CLI) | payer OTHER, SELFPAY ==
[2021-09-10 14:28] LABS: HPV APTIMA, High Risk Negative (Negative)
== END 2021-09-05 23:59 | disposition short-term general hospital (02) ==
LOC: LABSPEC 15:27
PROVIDERS: Visit Provider Obstetrics & Gynecology
DX: Z12.4 Encounter for screening for malignant neoplasm of cervix (principal)
CPT/HCPCS: 87624; 88175; G0145

== ENCOUNTER → 2023-10-17 | Outpatient (CLI) | payer OTHER, SELFPAY ==
[2023-10-21 07:08] LABS: Chlamydia By Nucleic Acid AMP Negative (Negative); Gonococcus By Nucleic Acid AMP Negative (Negative)
== END | disposition home or self-care (01) ==
LOC: LABSPEC 12:45
PROVIDERS: Referring Provider Advanced Practice Midwife; Visit Provider Advanced Practice Midwife
DX: Z34.90 Encounter for supervision of normal pregnancy, unspecified, unspecified trimester (principal)
CPT/HCPCS: 87086; 87088; 87491; 87591

== ENCOUNTER → 2024-01-08 | Outpatient (CLI) | payer OTHER, SELFPAY ==
[2024-01-08 08:33] LABS: Absolute Lymphocyte Count 2.22 X10^3/uL (0.83-4.51); Absolute Neutrophil Count 10.3 X10^3/uL (2.0-7.7); Basophil# 0.07 X10^3/uL; Basophil% 0.5 % (0-1); Eosinophil# 0.15 X10^3/uL; Eosinophils% 1.1 % (0-5); Hematocrit 36.3 % (37-47); Lymphocyte # 2.22 X10^3/ul (0.83-4.51); Lymphocyte % 16.1 % (19-41); Mean Corp Hgb Conc 33.1 g/dL (32-36); Mean Corpuscular Hgb 31.3 pg (27.0-32.0); Mean Corpuscular Volume 94.8 fL (81-99); Mean Platelet Vol. 9.8 fl (6.2-12.0); Monocyte% 6.5 % (0-10); NRBC Flagged by Analyzer 0 % (0-5); Neutrophil # 10.25 X10^3/uL (2.7-7.7); Neutrophil % 74.6 % (47-70); Platelet Count 293 K/mm3 (150-450); RBC Distribution Width CV 12.7 % (11.6-14.6); RBC Distribution Width SD 43.8 fl (35.1-43.9); Red Blood Count 3.83 M/mm3 (4.2-5.4); White Blood Count 13.8 K/mm3 (4.4-11.0)
[2024-01-08 19:42] LABS: HIV - WCH Non-Reactive (Nonreactive); Hepatitis B Surface Antigen Non-Reactive (Nonreactive); Hepatitis C Antibody Non-Reactive (Nonreactive); Rubella IgG Reactive (Nonreactive); Syphilis Antibodies Non-reactive
== END | disposition home or self-care (01) ==
PROVIDERS: Referring Provider Advanced Practice Midwife; Visit Provider Advanced Practice Midwife
DX: Z34.90 Encounter for supervision of normal pregnancy, unspecified, unspecified trimester (principal)
CPT/HCPCS: 36415; 85025; 86703; 86762; 86780; 86803; 86850; 86900; 86901; 87340

== ENCOUNTER → 2024-02-05 | Outpatient (CLI) | payer OTHER, SELFPAY ==
[2024-02-05 10:51] LABS: Glucose Challenge Gest 1H 50g 124 mg/dL (70-140)
== END | disposition home or self-care (01) ==
LOC: LAB 10:05
PROVIDERS: Referring Provider Obstetrics & Gynecology; Visit Provider Obstetrics & Gynecology
DX: Z13.1 Encounter for screening for diabetes mellitus (principal)
CPT/HCPCS: 36415; 82950

== ENCOUNTER → 2024-04-05 | Outpatient (CLI) | payer OTHER, SELFPAY ==
[2024-04-05 13:46] LABS: Group B Strep DNA By PCR Negative (Negative); Internal Control PASS; Probe Check PASS; Specimen Processing Control PASS
== END | disposition home or self-care (01) ==
LOC: LABSPEC 12:09
PROVIDERS: Referring Provider Advanced Practice Midwife; Visit Provider Advanced Practice Midwife
DX: O09.93 Supervision of high risk pregnancy, unspecified, third trimester (principal); Z3A.00 Weeks of gestation of pregnancy not specified
CPT/HCPCS: 87081; 87653

== ENCOUNTER 2024-04-19 08:16 | Outpatient (CLI) | payer OTHER, SELFPAY ==
[2024-04-19 08:32] VITALS: PULSE 95; RESP 15; TEMP 36.4; O2SAT 97; O2SAT 99
[2024-04-19 08:33] VITALS: BP 120/74; PULSE 96
[2024-04-19 08:38] VITALS: O2SAT 80
[2024-04-19 08:45] VITALS: BMI 33.6
--- NOTE | 2024-04-19 10:48 | OB.TRI.PN ---
Progress Notes Date of Service: 04/19/24 Progress Note: Patient presents for triage evaluation secondary to uterine contractions and back pressure. FHT: 135 Moderate variability reactive no decelerations category I tracing [place]: every 5-7 minutes Contractions, starting to become stronger Assessment and plan: early labor, labor precautions given, Reactive NST, reassuring maternal and status patient discharged to home to follow-up in office tomorrow. See problem list details for additional plan information. Charges/Coding Multi Select Codes Visit Charges Office Visit/Consults: 09173 OV L3 Est 20min Urinary/Genital Urinary/Genital CPT Codes: 00354-78 non-stress test Interp Assessment & Plan (1) Strep pharyngitis: (2) Hx of depression, currently : COMMENT: stable (3) Supervision of high-risk : QUALIFIERS: Trimester: third trimester Qualified Code(s): O09.93 - Supervision of high risk , unspecified, third trimester COMMENT: PRR, , MILADY 05/27/24, surprise Kelly Mccann Kareem (4) : QUALIFIERS: Weeks of gestation: 38 weeks Qualified Code(s): Z3A.38 - 38 weeks gestation of COMMENT: GBS neg, normal anatomy, declined genetic & carrier testing (5) ADHD: (6) Chronic migraine: COMMENT: stable on amitriptyline and imitrex used sparingly
== END 2024-04-19 11:15 | disposition home or self-care (01) ==
LOC: WPOUT 08:22 → WP 08:22
PROVIDERS: Referring Provider Advanced Practice Midwife; Visit Provider Advanced Practice Midwife
DX: O47.1 False labor at or after 37 completed weeks of gestation (principal); Z3A.38 38 weeks gestation of pregnancy; O09.93 Supervision of high risk pregnancy, unspecified, third trimester
CPT/HCPCS: 59025; 59050; 99221; G0378

== ENCOUNTER 2024-04-25 08:46 | Inpatient (IN) | payer OTHER, SELFPAY ==
[2024-04-25] VITALS (52 sets, daily range): BP systolic 81–143; BP diastolic 42–76; PULSE 37–157; RESP 15–18; TEMP 36.7–37.4; O2SAT 80–100; BMI 34.2
--- NOTE | 2024-04-25 08:45 | HP.PCM.OB_ITS ---
HPI - General HPI Narrative TAWNY HOWARD, is a 33 F who presents with SROM clear fluid IAL regular ctx no vb srom 7 am Maternal Data Information MILADY Calculator Estimated Delivery Date Method Current WG Current Estimate 04/30/24 Ultrasound #1 39w 2d Other Estimates 05/27/24 LMP (Certain) 35w 3d PFSH PFSH Medical History Asthma Contraception management Acne depression Chronic migraine Home Medications ?Medication ?Instructions ?Recorded ?Last Taken ?Type multivitamin no.47-iron fum 27 1 cap PO DAILY 10/10/23 04/24/24 22:00 History mg-folate no.1 1 mg-dha 300 mg capsule (PNV-DHA) Allergy/AdvReac Type Severity Reaction Status Date / Time hydrocodone bitartrate (From AdvReac Nausea Verified 04/25/24 08:27 Vicodin) Family History Grandfather Diabetes Cancer Father Hypertension Surgical History [place] teeth extracted Social History adopted: No household members: spouse and children number of children: 2 current occupational status: employed 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 Plans current occupational exposures/hazards: No pets and animals: No history of recent travel: No sexually active: Yes Smoking Status: Never smoker alcohol intake: never substance use type: does not use well-balanced diet: daily or most days caffeine: Yes Type: coffee Number of servings: 1 eating out: rarely or never during the past year weight has: remained stable what type of physical activity do you participate in: running and weight training frequency: 5-6 times per week duration: 30-45 minutes/day abhishek/bahai: Orthodox seatbelt use: always do you feel safe at home: Yes additional social history: -Kareem- Agricultural Patient works at [employer] History 3 Elective abortions Hx Para 2 Spontaneous abortions Hx # Term Pregnancies Ectopic pregnancies Hx # Pregnancies Multiple births # of living children 2 Past Pregnancies Del. Date Name GA/Weeks Outcome Route Bth Weight Infant Gen Labor Lgth Anesthesia Del Locatn Provider FOB 02/18/17 Gregoria 37 live - full term 6lbs Female epid ural [facility] SM Kareem 07/12/19 Kelly 40 live - full term vacuum 5# Female epid ural [facility] ALFREDO Delivery Date: 02/18/17 Last Updated by: Kaley Watkins No issues during or delivery. Delivery Date: 07/12/19 Last Updated by: Bella Acevedo 2nd degree laceration Visit Details Expected Delivery Route/Plan Labor Preferences- CB/BF classes: no labor support person: Kareem labor intervention preferences: [] pain management options preferred: epidural cut cord/dad catch: cord : undecided PP control planned: discussed discussed possible routes of delivery and associated risks: [] special requests: [] Plans Covid status: [] Flu vaccine: [] Tdap vaccine: declines Rhogam: na LARC form signed: yes movement and labor precautions reviewed. Problem list reviewed and updated with the most current plan of care details and appropriate orders placed. Relevant counseling for the gestational age provided. Continue routine care and follow up unless otherwise noted in visit notes/problem list details OB Flowsheet Initial Weight: Not Recorded Date -?-?-?-?-?-?-?-?-?-?-?-?- EGA Weight BP Urine Prot -?-?-?-?-?-?-?-?-?-?-?-?- Glucose FHR FuHt Pres Dilation -?-?-?-?--?-?-?-?-?-?-?-?- Effaced St Visit Note 10/17/23 -?-?-?-?-?-?-?-?-?-?-?-?- 12w 0d 144 lb 2 oz 120/78 -?-?-?-?-?-?-?-?-?-?-?-?- 168 -?-?-?-?-?-?-?-?-?-?-?-?- KW- CRL not cons with dates. measuring 12.0 weeks today. MILADY changed. Anatomy US ordered. 11/12/23 -?-?-?-?-?-?-?-?-?-?-?-?- 15w 5d 146 lb 112/68 Negative -?-?-?-?-?-?-?-?-?-?-?-?- Negative 156 -?-?-?-?-?-?-?-?-?-?-?-?- LC- no vb/crampi ng. declines afp. 12/12/23 -?-?-?-?-?-?-?-?-?-?-?-?- 20w 0d 155 lb 2 oz 118/66 Nega tive -?-?-?-?-?-?-?-?-?-?-?-?- Negative 145 20 -?-?-?-?-?-?-?-?-?-?-?-?- KW- no vb/crampi ng. +flutters. no concerns today. KW- no vb/cramping. +flutter s. normal anatomy. no concerns today. 01/05/24 -?-?-?-?-?-?-?-?-?-?-?-?- 23w 3d 164 lb 8 oz 122/84 Nega tive -?-?-?-?-?-?-?-?-?-?-?-?- Negative 140 -?-?-?-?-?-?-?-?-?-?-?-?- JV- pt still nee ds new [facility] labs. She states that her daughter is having a meltdown at school and can not do it today. She will come back tomorrow. 02/05/24 -?-?-?-?-?-?-?-?-?-?-?-?- 27w 6d 174 lb 117/72 -?-?-?-?-?-?-?-?-?-?-?-?- 150 28 -?-?-?-?-?-?-?-?-?-?-?-?- SM- no vb lof go od fm no regular ctx 02/16/24 -?-?-?-?-?-?-?-?-?--?-?-?- 29w 3d 176 lb 6 oz 122/78 Nega tive -?-?-?-?-?-?-?-?-?-?-?-?- Negative 146 30 -?-?-?-?-?-?-?-?-?-?-?-?- MH-No VB, LOF. G ood Fm. Denies concerns. Larc done. Declines tdap 03/02/24 -?-?-?-?-?-?-?-?-?-?-?-?- 31w 4d 181 lb 116/72 Trace -?-?-?-?-?-?-?-?-?-?-?-?- Negative 140 32 -?-?-?-?-?-?-?-?-?-?-?-?- SM- no vb lof go od fm no regular ctix 03/15/24 -?-?-?-?-?-?-?-?-?-?-?-?- 33w 3d 186 lb 114/70 Negative -?-?-?-?-?-?-?-?-?--?-?-?- Negative 147 34 -?-?-?-?-?-?-?-?-?-?-?-?- MH-No vb, LOF. G ood FM. Denies concerns 03/29/24 -?-?-?-?-?-?-?-?-?-?-?-?- 35w 3d 189 lb 126/81 Negative -?-?-?-?-?-?-?-?-?-?-?-?- Negative 140 35 -?-?-?-?-?-?-?-?-?-?-?-?- KW-no vb/toro g. good fm. 04/05/24 -?-?--?-?-?-?-?-?-?-?-?-?- 36w 3d 190 lb 125/82 Negative -?-?-?-?-?-?-?-?-?-?-?-?- Negative 140 36 2 -?-?-?-?-?-?-?-?-?-?-?-?- 70 -2 KW- no vb/ lof/ctx. good fm. GBS today 04/12/24 -?-?-?-?-?-?-?-?-?-?-?-?- 37w 3d 190 lb 120/78 Negative -?-?-?-?-?-?-?-?-?-?-?-?- Negative 163 36.5 Cephalic 2 -?-?-?-?-?-?-?-?-?-?-?-?- 30 -3 JV- very d ifficult to reach the presenting part. bedside scan shows vtx. cervix is thick and high today. 04/20/24 -?-?-?-?-?-?-?-?-?-?-?-?- 38w 4d 191 lb 4 oz 123/71 Trac e -?-?-?-?-?-?-?-?-?-?-?-?- Negative 150 38 Cephalic 4 -?-?-?-?-?-?-?-?-?-?-?-?- 60 -2 SM- no vb lof good fm co irregular ctx NST FHR Rate Baby A Baseline: 140 Variability:: Moderate Accelerations:: 15 x 15 Decelerations:: None NST Reactive:: Yes FHR Category:: Category I Uterine Activity:: q3-5 ROS Constitutional Constitutional: Reports systems reviewed and no addt'l complaints, except as documented ENT HEENT: Reports systems reviewed and no addt'l complaints, except as documented Cardiovascular Cardiovascular: Reports systems reviewed and no addt'l complaints, except as documented Respiratory/Chest Respiratory/Chest: Reports systems reviewed and no addt'l complaints, except as documented Gastrointestinal Gastrointestinal: Reports systems reviewed and no addt'l complaints, except as documented and nausea; Denies abdominal pain Genitourinary Genitourinary: Reports systems reviewed and no addt'l complaints, except as documented, contractions Details: present and frequency (regular ) and movement Details: present Musculoskeletal Musculoskeletal: Reports systems reviewed and no addt'l complaints, except as documented Integumentary Integumentary: Reports as per HPI Neurologic Neurologic: Reports systems reviewed and no addt'l complaints, except as documented Endocrine Endocrinology: Reports systems reviewed and no addt'l complaints, except as documented Vital Signs Vital Signs Vital Signs: 04/25/24 08:21 04/25/24 08:21 04/25/24 08:22 Temperature Temperature Source Pulse Rate 96 109 H Respiratory Rate Blood Pressure 124/72 H BP Systolic 124 BP Diastolic 72 Pulse Ox 04/25/24 08:22 04/25/24 08:22 04/25/24 08:22 Temperature Temperature Source Temporal Pulse Rate Respiratory Rate 16 Blood Pressure BP Systolic BP Diastolic Pulse Ox 96 04/25/24 08:22 04/25/24 08:22 Temperature 98.3 F Temperature Source Pulse Rate Respiratory Rate Blood Pressure BP Systolic BP Diastolic Pulse Ox 96 Weight Weight: 193 lb Body Mass Index (BMI) 34.2 Physical Exam Const alert, oriented x3 and healthy appearing Constitutional Narrative: uncomfortable with contractions HEENT normocephalic and moist oral mucous membranes Head and Scalp: atraumatic Neck full ROM, no lymphadenopathy, supple and thyroid normal General: trachea midline Thyroid: thyroid normal Lymph Lymphatic: no lymphadenopathy noted Chest inspection of chest normal Resp normal respiratory effort Cardio regular rate GI normal to inspection, nondistended, normoactive bowel sounds, soft to palpation and non-tender Inspection: gravid external exam normal Bimanual Exam - Vag & Uterus: uterus non-tender Manual OB Exam: estimated gestational size appropriate, presentation cephalic, dilated, effaced and station Extremity normal to inspection General Extremity: Negative for edema Skin no rashes or lesions noted Neuro deep tendon reflexes 2+ bilaterally Motor Exam: strength 5/5 throughout and clonus absent Psych mental status grossly normal Labs Labs Labs: Blood Type A POSITIVE Antibody Screen NEGATIVE Hct 36.3 % (37-47) L Hgb 12.0 g/dL (12.0-15.0) Syphilis Total Ab Non-reactive Rubella IgG Antibody Reactive (Nonreactive) Hep Bs Antigen Non-Reactive (Nonreactive) Hepatitis C Antibody Non-Reactive (Nonreactive) Chlamydia DNA (GIGI) Negative (Negative) N.gonorrhoeae DNA (GIGI) Negative (Negative) HIV 1&2 Antibody Non-Reactive (Nonreactive) Glucose 1 Hr 50 gm 124 mg/dL (70-140) Group B Strep DNA Negative (Negative) Rhogam given: No Assessment & Plan (1) Hx of depression, currently : COMMENT: stable (2) Supervision of high-risk : QUALIFIERS: Trimester: third trimester Qualified Code(s): O09.93 - Supervision of high risk , unspecified, third trimester COMMENT: PRR, , MILADY 05/27/24, surprise ALFREDO Kinney, Kelly Kareem (3) : COMMENT: GBS neg, normal anatomy, declined genetic & carrier testing (4) ADHD: (5) Chronic migraine: COMMENT: stable on amitriptyline and imitrex used sparingly (6) SROM (spontaneous rupture of membranes): PLAN: Plan Patient presents IAL, plan expectant management for , pitocin/AROM PRN if needed. Pain management: plans epidural. GBS neg. Management of any complications: none I have reviewed the PFSH and made any clinically relevant updates.
[2024-04-25] MEDS: Lactated Ringers 1,000 ML 50 ML IV (09:21)
[2024-04-25 09:24] LABS: ROM Internal Control Test YES-OK TO RESULT pt. (Internal QC); ROM Patient Test Negative (Negative); Record Kit Lot#, ROM+ K1866
[2024-04-25 09:25] LABS: Absolute Lymphocyte Count 1.34 X10^3/uL (0.83-4.51); Basophil# 0.06 X10^3/uL; Basophil% 0.3 % (0-1); Eosinophil# 0.03 X10^3/uL; Eosinophils% 0.2 % (0-5); Hematocrit 35.1 % (37-47); Hemoglobin 11.9 g/dL (12.0-15.0); Lymphocyte # 1.34 X10^3/ul (0.83-4.51); Lymphocyte % 7.4 % (19-41); Mean Corp Hgb Conc 33.9 g/dL (32-36); Mean Corpuscular Hgb 31.6 pg (27.0-32.0); Mean Corpuscular Volume 93.1 fL (81-99); Mean Platelet Vol. 9.9 fl (6.2-12.0); Monocyte# 0.73 X10^3/uL; NRBC Flagged by Analyzer 0 % (0-5); Neutrophil # 15.98 X10^3/uL (2.7-7.7); Neutrophil % 87.6 % (47-70); Platelet Count 306 K/mm3 (150-450); RBC Distribution Width CV 12.5 % (11.6-14.6); RBC Distribution Width SD 43.1 fl (35.1-43.9); Red Blood Count 3.77 M/mm3 (4.2-5.4); White Blood Count 18.2 K/mm3 (4.4-11.0)
[2024-04-25 10:12] LABS: Syphilis Antibodies Non-reactive
[2024-04-25] MEDS: Lactated Ringers 1,000 ML 999 ML IV (10:52)
[2024-04-25] MEDS: fentaNYL-bupivacaine (epidural) 100 ML BAG EPIDURAL (11:57)
[2024-04-25] MEDS: LACTATED RINGERS 500 ML 999 ML IV ×2 (13:22→15:25)
[2024-04-25] MEDS: Amnioinfusion- 0.9% NS 1,000 ML IV.SOLN. 1000 ML INTRA-UTER (13:40)
[2024-04-25] MEDS: ePHEDrine Sulfate 50 MG/ML Ampul 10 MG IV (13:42)
--- NOTE | 2024-04-25 14:10 | PCM.PN.BLA ---
Progress Note cat II tracing internals placed amnioinfusion started, low bp. now resolved doing well 4-5 cm position changes and IVF bolus. overlal reassuring,. exp management
[2024-04-25] MEDS: Oxytocin 15 Units/NS 250ml 15 UNITS/250 ML IV.SOLN 334 UNITS IV (15:53)
--- NOTE | 2024-04-25 15:58 | OP.PCM_ITS ---
Assessment & Plan (1) SROM (spontaneous rupture of membranes): (2) bradycardia: (3) Vacuum-assisted vaginal delivery: COMMENT: SM VAVD girl Raimundo 39 Maternal Data Information MILADY Calculator Estimated Delivery Date Method Current WG Current Estimate 04/30/24 Ultrasound #1 39w 2d Other Estimates 05/27/24 LMP (Certain) 35w 3d Vaginal Delivery Operative Information Date of Procedure: 04/25/24 Pre-Operative Diagnosis: IAL SROM Post-Operative Diagnosis: same Surgery / Procedure Performed: Vacuum Assisted Vaginal Delivery Type of Anesthesia: Epidural Special Medications: none Estimated Blood Loss: 200 Fluids Replaced: crystalloid Findings Description of Procedure: Patient began pushing and delivered the head in the JACQUE presentation. patient began pushigna nd had a terminal bradycardia therefore a vacuum was applied and with 1 pull no pop offs for 1 minute duration, The head was delivered atraumatically . The anterior and posterior shoulders delivered without complication followed by the rest of the and the infant was placed on the maternal abdomen. Delayed cord clamping was employed for approximately 60 seconds. Cord was clamped and cut and gentle traction was applied to the cord and the placenta delivered spontaneously immediately following it was noted to be intact with three-vessel cord. The perineum and vagina were inspected and noted to have a first degree perineal laceration which was repaired in the usual fashion with 3-0 vicryl rapide. . EBL was 200 cc. Patient and infant tolerated delivery well. Amniotic Fluid Description: Clear Placental Delivery Description: Spontaneous Placenta Disposition: [facility] Cord Vessel Description: 3 Vessels Cord Entanglement: None Delayed Cord Clamping: Yes Post Vaginal Delivery Medications Given After Delivery: IV Pitocin Episiotomy Description: None Complication Complications: None Procedures Urinary/Genital [id number]: [id number] Vaginal Delivery [facility]
--- NOTE | 2024-04-25 16:01 | DCINST_ITS ---
Discharge Instructions Diet Discharge Diet: No restrictions Activity Discharge Activity: Return to Normal Activity, May Not Drive (while taking narcotic pain medications.) and May Shower May resume sexual activity in: 4-6 weeks Dressing / Incision Call your doctor if your incision/area has: Continuous Slow Oozing, Sudden Increased Bleeding, Increased Pain/ Swelling, Increased Redness and Foul Smelling Discharge Follow Up Care Please Follow Up With: Melanie Macedo MD When: Call [phone] to make an appointment with your doctor in 6 weeks. If you had elevated blood pressure or 4th degree laceration, you will need to be seen in 2 weeks. Test Results: Test results from this visit will be discussed in further detail at your follow- up appointment, if applicable. Discharge Plan Admission Admit Date/Time: 04/25/24 08:46 Attending Provider: Melanie Macedo Primary Care Provider: Care Physician,[place] Primary Discharge Orders/Prescriptions Prescriptions: No Action PNV-DHA 27 mg iron-1 mg -300 mg capsule 1 cap PO DAILY Referrals / Follow Up: Care Physician,No Primary [Primary Care Provider] - Disposition Disposition (needs filled in before D/C Order can be placed): Home, Self Care
[2024-04-25] MEDS: Oxytocin 15 Units/NS 250ml 15 UNITS/250 ML IV.SOLN 83 UNITS IV (16:55)
[2024-04-25] MEDS: Acetaminophen 500 MG Tablet 1000 MG PO (21:26)
[2024-04-26] VITALS (9 sets, daily range): BP systolic 112–129; BP diastolic 63–75; PULSE 75–92; RESP 16; TEMP 36.6–36.9; O2SAT 95–98
[2024-04-26] MEDS: Naproxen 500 MG Tablet PO (01:46)
[2024-04-26] MEDS: Acetaminophen 500 MG Tablet 1000 MG PO (04:22)
--- NOTE | 2024-04-26 11:08 | PCM.PN.OB ---
Subjective Subjective Patient doing well without complaints. Tolerating PO. Ambulating and voiding without difficulty. feeding well. Denies chest pain, shortness of breath, calf pain/swelling, fevers, chills, lightheadedness. Objective Data Objective Data Vital Signs: Vital Signs Temp Pulse Resp BP Pulse Ox O2 Del Method 97.9 F 88 16 129/69 H 98 Room Air 04/26/24 08:00 04/26/24 08:00 04/26/24 08:00 04/26/24 08:00 04/26/24 08:00 04/26/24 08:00 Oxygen Delivery Method Room Air Weight: 193 lb Body Mass Index (BMI) 34.2 Intake & Output: Intake and Output for Last 24 Hours 04/24/24 04/25/24 04/26/24 23:59 23:59 23:59 Intake Total 3285.25 / 3285.25 Output Total 1550 / 1550 Balance 1735.25 / 1735.25 Lab / Micro Data 04/25/24 09:00 ROS Constitutional Constitutional: Reports systems reviewed and no addt'l complaints, except as documented Cardiovascular Cardiovascular: Reports systems reviewed and no addt'l complaints, except as documented Respiratory/Chest Respiratory/Chest: Reports systems reviewed and no addt'l complaints, except as documented Gastrointestinal Gastrointestinal: Reports systems reviewed and no addt'l complaints, except as documented Physical Exam Const alert, oriented x3 and no apparent distress HEENT Head and Scalp: atraumatic Resp normal respiratory effort GI soft to palpation and non-tender Bimanual Exam - Vag & Uterus: uterus non-tender Uterus Palpation: uterus fundus firm (below Umbilicus) Assessment & Plan (1) Vacuum-assisted vaginal delivery: COMMENT: VAVD girl Raimundo 39 PLAN: Plan s/p vavd PPD # 1 1. routine post delivery care 2. breast feeding- support given 3. rh positive 4. rubella immune
--- NOTE | 2024-05-04 15:26 | NURSING ---
Follow up phone call made, no answer, left voicemail
== END 2024-04-26 18:00 | disposition home or self-care (01) | DRG 807 ==
LOC: WPOUT 08:52 → WP 08:52
PROVIDERS: Admitting Provider Obstetrics & Gynecology; Visit Provider Obstetrics & Gynecology
DX: O42.02 Full-term premature rupture of membranes, onset of labor within 24 hours of rupture (principal); Z37.0 Single live birth; O70.0 First degree perineal laceration during delivery; O76 Abnormality in fetal heart rate and rhythm complicating labor and delivery; Z3A.39 39 weeks gestation of pregnancy; Z87.59 Personal history of other complications of pregnancy, childbirth and the puerperium
CPT/HCPCS: 59025; 59050; 84112; 85025; 86780; 86850; 86900; 86901; 99221; J7030; J7120; G0378

== ENCOUNTER → 2024-06-21 | Outpatient (CLI) | payer OTHER, SELFPAY ==
--- NOTE | 2024-06-21 14:20 | US_ITS ---
STUDY: ULTRASOUND BREAST - LEFT REASON FOR EXAM: Female, 34 years old. Left breast lump. Patient is 8 weeks . TECHNIQUE: Axial and longitudinal images of the LEFT breast were performed with a high resolution ultrasound transducer. # OF IMAGES: 19 COMPARISON: None. FINDINGS: LEFT Breast: The lower inner quadrant of the left breast was examined with ultrasound. No sonographic abnormality is seen. US/Breast Limited Unilateral IMPRESSION: No sonographic abnormality is seen. ASSESSMENT CATEGORY: BIRADS Category 1: Negative. A letter regarding these results will be sent to the patient by the facility within 30 days. Electronically Signed: Prosper Fountain MD at 13:23 EDT ,
--- OUTSIDE RECORDS SUMMARY | 2024-06-21 18:27 | XMS RPT_ITS | CCD ---
Author Organization [facility] Inform ion Partnership 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 Name Role Phone ENDY SINGH Primary Care Physician PEPPER BURKETT Primary Care Physician [facility], Primary Care Unavailable NAVIN HUNTER Attending Unavailable JERRI PORTILLO Referring Unavailable Allergies Allergy Classification Reported Allergen(s) Allergy Type Date of Onset Reaction(s) Facility (1 source) acetaminophen / HYDROcodone; Translations: [HYDROCODONE-ACETA MINOPHEN] [facility] Acetaminophen / HYDROcodone; Translations: [acetaminophen-hyd rocodone] Drug Allergy [facility] Medications Current Medications Medication Drug Class(es) Dates Sig (Normalized) Sig (Original) acetaminophen 500 mg oral tablet (2 sources) Start: 10-01-2019 acetaminophen 500 mg oral tablet Dose : 1,000 mg = 2 tab(s), Oral, TID, PRN for pain, 0 Refill(s) Start Date: 10/01/19 Status: Ordered 24 hr amphetamine aspartate 6.25 mg / amphetamine sulfate 6.25 mg / dextroamphetamine saccharate 6.25 mg / dextroamphetamine sulfate 6.25 mg extended release oral capsule (3 sources) Central Nervous System Stimulant Start: 09-10-2022 End: 12-11-2022 Adderall XR 25 mg oral capsule, extended release Dose : 25 mg = 1 cap(s), Oral, qAM, # 30 cap(s), 0 Refill(s), Pharmacy: [id number], ADHD, 11/07/22, 161, cm, 09/02/22 13:46:00 EST, Height, 57.4, kg, 09/02/22 13:39:00 EST, Dosing Weight Start Date: 11/11/22 Stop Date: 12/11/22 Status: Ordered citalopram 20 mg oral tablet (1 source) Serotonin Reuptake Inhibitor Start: 12-28-2019 citalopram 20 mg oral tablet Dose : 20 mg = 1 tab(s), Oral, qDay, 0 Refill(s) Start Date: 12/28/19 Status: Ordered doxycycline hyclate 20 mg oral tablet (1 source) Tetracycline-class Drug Start: 01-17-2021 doxycycline 20 mg oral tablet 0 Refill(s), 67.4 Start Date: 01/17/21 Status: Ordered Hydrocortisone (1 source) Corticosteroid Start: 01-17-2021 hydrocortisone 2.5% topical cream Apply 1 jakob, Topical, BID, # 30 gram(s), 1 Refill(s), Pharmacy: [facility]/pharmacy #[id number], 161, cm, 01/17/21 8:50:00 EDT, Height, 66, kg, 01/17/21 8:50:00 EDT, Dosing Weight Start Date: 01/17/21 Status: Ordered ibuprofen 200 mg oral tablet (2 sources) Nonsteroidal Anti-inflammatory Drug Start: 10-15-2019 ibuprofen 200 mg oral tablet Dose : 400 mg = 2 tab(s), Oral, q6hr, PRN as needed for pain, 0 Refill(s) Start Date: 10/15/19 Status: Ordered spironolactone 100 mg oral tablet (1 source) Aldosterone Antagonist Start: 01-17-2021 spironolactone 100 mg oral tablet 0 Refill(s) Start Date: 01/17/21 Status: Ordered SUMAtriptan 25 mg oral tablet (2 sources) Serotonin-1b and Serotonin-1d Receptor Agonist Start: 09-02-2022 SUMAtriptan 25 mg oral tablet Dose : 25 mg = 1 tab(s), Oral, qDay, PRN as needed for migraine headache, 1 tab onset , may repeat in 2 hrs. MAX 8 tab(s)/24hrs, # 9 tab(s), 2 Refill(s), Pharmacy: [facility] #[id number], Migraine, 161, cm, 09/02/22 13:46:00 EST, Height, kg, 09/02/22 13:39:0... Start Date: 09/02/22 Status: Ordered Start: 10-01-2019 SUMAtriptan 25 mg oral tablet Dose : 25 mg = 1 tab(s), Oral, qDay, PRN as needed for migraine headache, 1 tab onset , may repeat in 2 hrs. MAX 8 tab(s)/24hrs, # 9 tab(s), 2 Refill(s), Pharmacy: [facility]/pharmacy #[id number], Migraine, 161.29, cm, 10/01/19 14:32:00 EST, Height, kg, 10/01/19 1... Start Date: 10/01/19 Status: Ordered topiramate 50 mg oral tablet (1 source) Start: 02-15-2021 topiramate 50 mg oral tablet Dose : 50 mg = 1 tab(s), Oral, prescribed by George Rios MD, 0 Refill(s) Start Date: 02/15/21 Status: Ordered Completed/Discontinued Medications Medication Drug Class(es) Dates Sig (Normalized) Sig (Original) amitriptyline hydrochloride 50 mg oral tablet (1 source) Tricyclic Antidepressant Start: 12-28-2019 End: 06-25-2020 amitriptyline 50 mg oral tablet Dose : 50 mg = 1 tab(s), Oral, qHS, # 90 tab(s), 1 Refill(s), Pharmacy: [facility]/pharmacy #[id number], Migraine, 160, cm, 10/15/19 11:30:00 EST, Height, kg, 12/28/19 13:31:00 EDT, Dosing Weight Start Date: 12/28/19 Stop Date: 06/25/20 Status: Ordered {24 (drospirenone 3 MG / Ethinyl Estradiol 0.02 MG Oral Tablet) / 4 (Inert Ingredients 1 MG Oral Tablet) } Pack [Carlota 28 Day] (1 source) Progestin, Estrogen Start: 01-17-2021 take 1 tablet by mouth once daily Carlota 3 mg-0.02 mg oral tablet Dose = 1 tab(s), Oral, Daily, # 28 tab(s), 0 Refill(s) Start Date: 01/17/21 Status: Ordered predniSONE 10 mg oral tablet (1 source) Start: 01-17-2021 End: 01-22-2021 predniSONE 10 mg oral tablet Dose : 30 mg = 3 tab(s), Oral, qDay, # 15 tab(s), 0 Refill(s), Pharmacy: [facility]/pharmacy #[id number], 161, cm, 01/17/21 8:50:00 EDT, Height, kg, 01/17/21 8:50:00 EDT, Dosing Weight Start Date: 01/17/21 Stop Date: 01/22/21 Status: Ordered Triamcinolone (1 source) Corticosteroid Start: 10-01-2019 triamcinolone 0.5% topical cream Apply 1 jakob, Topical, BID, 0 Refill(s), Cream, 67.2 Start Date: 10/01/19 Status: Ordered Carlota 3 mg-0.02 mg oral tablet (1 source) Start: 01-17-2021 take 1 tablet by mouth once daily Carlota 3 mg-0.02 mg oral tablet Dose = 1 tab(s), Oral, Daily, # 28 tab(s), 0 Refill(s) Start Date: 01/17/21 Status: Ordered Problems Problem Classification Problem Date Documented Da te Episodic/Chronic Attention-deficit, conduct, and disruptive behavior disorders (1 source) Adult attention deficit hyperactivity disorder 10-15-2021 Chronic Disorders of lipid metabolism (1 source) Hyperlipidemia 10-15-2021 Chronic Headache; including migraine (4 sources) Migraine 10-01-2019 Chronic Other lower respiratory disease (2 sources) H/O: asthma 10-01-2019 Episodic Other skin disorders (1 source) Night sweats 09-02-2022 Episodic Results Test Name Value Interpretation Reference Range Facility LABORATORYOrdered By: SYSTEM SYSTEM on 09-13-2022 Albumin BCP dye [Mass/Vol] 3.8 G/dL Invalid Interpretation Code 3.5 - 5.0 G/dL AO ADM SS Albumin/Globulin [Mass ratio] 1.0 {ratio} Invalid Interpretation Code 1.1 - 2.5 ratio AO ADM SS ALP [Catalytic activity/Vol] 57 U/L Invalid Interpretation Code 40 - 135 U/L AO ADM SS ALT With P-5'-P [Catalytic activity/Vol] 20 U/L Invalid Interpretation Code 14 - 59 U/L AO ADM SS AST With P-5'-P [Catalytic activity/Vol] 19 U/L Invalid Interpretation Code 10 - 40 U/L AO ADM SS Bilirubin [Mass/Vol] 0.7 mg/dL Invalid Interpretation Code 0.2 - 1.0 mg/dL AO ADM SS Calcium [Mass/Vol] 9.2 mg/dL Invalid Interpretation Code 8.4 - 10.2 mg/dL AO ADM SS Chloride [Moles/Vol] 106 mmol/L Invalid Interpretation Code 98 - 107 mmol/L AO ADM SS CO2 [Moles/Vol] 27 mmol/L Invalid Interpretation Code 22 - 29 mmol/L AO ADM SS Creatinine [Mass/Vol] 0.96 mg/dL Invalid Interpretation Code 0.55 - 1.02 mg/dL AO ADM SS Electrolyte Balance 8.0 mEq/L Invalid Interpretation Code 4.0 - 15.0 mEq/L AO ADM SS Free T4 [Mass/Vol] 1.21 ng/dL Invalid Interpretation Code 0.76 - 1.46 ng/dL AO ADM SS GFR 81 ml/min/1.73sqm Invalid Interpretation Code AO Chemistry S GFR Non- 67 ml/min/1.73sqm Invalid Interpretation Code AO Chemistry S Globulin 3.8 G/dL Invalid Interpretation Code AO ADM SS Glucose [Mass/Vol] 89 mg/dL Invalid Interpretation Code 70 - 105 mg/dL AO ADM SS Potassium [Moles/Vol] 5.2 mmol/L Invalid Interpretation Code 3.5 - 5.1 mmol/L AO ADM SS Protein [Mass/Vol] 7.6 G/dL Invalid Interpretation Code 6.4 - 8.2 G/dL AO ADM SS Sodium [Moles/Vol] 141 mmol/L Invalid Interpretation Code 136 - 145 mmol/L AO ADM SS TSH Qn 0.89 m[IU]/L Invalid Interpretation Code 0.36 - 3.74 mcIU/mL AO ADM SS Urea nitrogen [Mass/Vol] 15 mg/dL Invalid Interpretation Code 7 - 18 mg/dL AO ADM SS Urea nitrogen/Creatinine [Mass ratio] 16 ratio Invalid Interpretation Code 7 - 27 ratio AO ADM SS LABORATORYOrdered By: Jozef Hahn on 09-13-2022 Basophil, Absolute 0.1 103/mcL Invalid Interpretation Code 0.0 - 0.2 10^3/mcL AO Workflow SS Basophils/100 WBC (Bld) 1.1 % Invalid Interpretation Code 0.0 - 2.5 % AO Workflow SS CRP [Mass/Vol] mg/dL Invalid Interpretation Code 0.0 - 0.9 mg/dL AO Chemistry S Eosinophil, Absolute 0.1 103/mcL Invalid Interpretation Code 0.0 - 0.4 10^3/mcL AO Workflow SS Eosinophils/100 WBC (Bld) 2.0 % Invalid Interpretation Code 0.0 - 7.0 % AO Workflow SS Erythrocyte distribution width (RBC) [Ratio] 12.5 % Invalid Interpretation Code 11.5 - 14.5 % AO Workflow SS Hematocrit (Bld) [Volume fraction] 40.5 % Invalid Interpretation Code 37.0 - 47.0 % AO Workflow SS Hemoglobin (Bld) [Mass/Vol] 13.7 G/dL Invalid Interpretation Code 12.0 - 16.0 G/dL AO Workflow SS Lymphocyte, Absolute 2.0 103/mcL Invalid Interpretation Code 0.8 - 3.9 10^3/mcL AO Workflow SS Lymphocytes/100 WBC (Bld) 36.0 % Invalid Interpretation Code 10.0 - 50.0 % AO Workflow SS MCH (RBC) [Entitic mass] 30.7 pg Invalid Interpretation Code 27.0 - 31.2 pg AO Workflow SS MCHC 33.7 G/dL Invalid Interpretation Code 33.0 - 37.0 G/dL AO Workflow SS MCV (RBC) [Entitic vol] 90.9 fL Invalid Interpretation Code 80.0 - 94.0 fL AO Workflow SS Monocyte, Absolute 0.4 103/mcL Invalid Interpretation Code 0.2 - 1.0 10^3/mcL AO Workflow SS Monocytes/100 WBC (Bld) 7.8 % Invalid Interpretation Code 1.7 - 13.0 % AO Workflow SS Neutrophil, Absolute 2.9 103/mcL Invalid Interpretation Code 2.9 - 6.2 10^3/mcL AO Workflow SS Neutrophils/100 WBC (Bld) 53.1 % Invalid Interpretation Code 37.0 - 80.0 % AO Workflow SS Platelet mean volume (Bld) [Entitic vol] 8.7 fL Invalid Interpretation Code 7.4 - 10.4 fL AO Workflow SS Platelets (Bld) [#/Vol] 296 103/mcL Invalid Interpretation Code 130 - 400 10^3/mcL AO Workflow SS RBC (Bld) [#/Vol] 4.46 106/mcL Invalid Interpretation Code 4.20 - 5.40 10^6/mcL AO Workflow SS WBC (Bld) [#/Vol] 5.5 103/mcL Invalid Interpretation Code 4.6 - 10.8 10^3/mcL AO Workflow SS Direct LDLon 06-15-2021 LDL Cholesterol Direct 160 mg/dL High <100 [facility] ([place]) Comment on above: Result Comment: <100 mg/dL, Optimal 100-129 mg/dL, Near optimal/above optimal 130-159 mg/dL, Borderline high 160-189 mg/dL, High >189 mg/dL, Very high Secondary prevention optimal LDL Cholesterol levels are recommended to be < 70 mg/dL Performed By: [facility] [address] [id number] Commercial Lending Relationship Manager: Theron Smith III, M.D. CLIA#: [id number] Phone#: Performed By: #### H CGQ, ALT, LDLDCT, AST #### [address] [address] VLDL Cholesterol Test Not Indicated Normal <30 [facility] ([place]) Comment on above: Result Comment: Perf ormed By: [facility] [address] [place] [address] Commercial Lending Relationship Manager: Theron Smith III, M.D. CLIA#: [id number] Phone#: Performed By: #### H CGQ, ALT, LDLDCT, AST #### [address] [address] ALT/SGPTon 06-14-2021 ALT [Catalytic activity/Vol] 27 U/L Normal 14-59 [facility] ([place]) Comment on above: Performed By: #### H CGQ, ALT, LDLDCT, AST #### [address] [address] Masoud 06-14-2021 AST [Catalytic activity/Vol] 22 U/L Normal 10-40 [facility] ([place]) Comment on above: Performed By: #### H CGQ, ALT, LDLDCT, AST #### [address] [address] HCGQon 06-14-2021 hCG, quantitative <1.0 Normal [facility] ([place]) Comment on above: Result Comment: HCG Quantitative 3 Weeks Gestation mIU/mL 5.0 to 12.0 HCG Quantitative 4 Weeks Gestation mIU/mL 10.0 to 708.0 HCG Quantitative 5 Weeks Gestation mIU/mL 217.0 to 8245.0 HCG Quantitative 6 Weeks Gestation mIU/mL 152.0 to 32,177.0 HCG Quantitative 7 Weeks Gestation mIU/mL 4059.0 to 153,767.0 HCG Quantitative 8 Weeks Gestation mIU/mL 31,366.0 to 149,094.0 HCG Quantitative 9 Weeks Gestation mIU/mL 59,109.0 to 135,901.0 HCG Quantitative 10 Weeks Gestation mIU/mL 44,186.0 to 170,409.0 HCG Quantitative 12 Weeks Gestation mIU/mL 27,107.0 to 201,615.0 HCG Quantitative 14 Weeks Gestation mIU/mL 24,302.0 to 93,646.0 Performed By: #### H CGQ, ALT, LDLDCT, AST #### [address] [address] .Auto Diffon 06-07-2021 Basophil, Absolute 0.10 10 3/mcL Normal 0.00-0.19 [facility] ([place]) Comment on above: Performed By: #### A LT, HCGQ, LDLDCT, AST, LIPID #### [address] [address] Basophils/100 WBC (Bld) 0.7 % Normal 0.0-2.5 [facility] ([place]) Comment on above: Performed By: #### A LT, HCGQ, LDLDCT, AST, LIPID #### [address] [address] Eosinophil, Absolute 0.10 10 3/mcL Normal 0.00-0.40 A [facility] ([place]) Comment on above: Performed By: #### A LT, HCGQ, LDLDCT, AST, LIPID #### [address] [address] Eosinophils/100 WBC (Bld) 0.8 % Normal 0.0-7.0 [facility] ([place]) Comment on above: Performed By: #### A LT, HCGQ, LDLDCT, AST, LIPID #### [address] [address] Lymphocyte, Absolute 2.10 10 3/mcL Normal 0.77-3.85 A [facility] ([place]) Comment on above: Performed By: #### A LT, HCGQ, LDLDCT, AST, LIPID #### [address] [address] Lymphocytes/100 WBC (Bld) 27.1 % Normal 10.0-50.0 [facility] ([place]) Comment on above: Performed By: #### A LT, HCGQ, LDLDCT, AST, LIPID #### [address] [address] Monocyte, Absolute 0.50 10 3/mcL Normal 0.15-1.00 [facility] ([place]) Comment on above: Performed By: #### A LT, HCGQ, LDLDCT, AST, LIPID #### [address] [address] Monocytes/100 WBC (Bld) 6.4 % Normal 1.7-13.0 [facility] ([place]) Comment on above: Performed By: #### A LT, HCGQ, LDLDCT, AST, LIPID #### [address] [address] Neutrophils/100 WBC (Bld) 65.0 % Normal 37.0-80.0 [facility] ([place]) Comment on above: Performed By: #### A LT, HCGQ, LDLDCT, AST, LIPID #### [address] [address] .NEUABSon 06-07-2021 Neutrophil, Absolute 5.00 10 3/mcL Normal 2.85-6.16 A [facility] ([place] Comment on above: Performed By: #### A LT, HCGQ, LDLDCT, AST, LIPID #### [address] [address] CBCon 06-07-2021 Erythrocyte distribution width (RBC) [Ratio] 12.1 % Normal 11.5-14.5 [facility] ([place]) Comment on above: Performed By: #### L IPID, ANEU, ADIFF, FT4, TSH, CBC #### [address] [address] Hematocrit (Bld) [Volume fraction] 39.6 % Normal 37.0-47.0 [facility] ([place]) Comment on above: Performed By: #### L IPID, ANEU, ADIFF, FT4, TSH, CBC #### [place] [address] Hgb 13.5 G/dL Normal 12.0-16.0 [facility] ([place]) Comment on above: Performed By: #### L IPID, ANEU, ADIFF, FT4, TSH, CBC #### [address] [address] MCH (RBC) [Entitic mass] 30.8 pg Normal 27.0-31.2 [facility] ([place]) Comment on above: Performed By: #### L IPID, ANEU, ADIFF, FT4, TSH, CBC #### [place] [address] MCHC 34.0 G/dL Normal 33.0-37.0 [facility] ([place]) Comment on above: Performed By: #### L IPID, ANEU, ADIFF, FT4, TSH, CBC #### [place] [address] MCV (RBC) [Entitic vol] 90.5 fL Normal 80.0-94.0 [facility] ([place]) Comment on above: Performed By: #### L IPID, ANEU, ADIFF, FT4, TSH, CBC #### [place] [address] Platelet 337 10 3/mcL Normal 130-400 [facility] ([place] Comment on above: Performed By: #### L IPID, ANEU, ADIFF, FT4, TSH, CBC #### [place] [address] Platelet mean volume (Bld) [Entitic vol] 9.2 fL Normal 7.4-10.4 [facility] ([place] Comment on above: Performed By: #### L IPID, ANEU, ADIFF, FT4, TSH, CBC #### [address] [address] RBC 4.37 10 6/mcL Normal 4.20-5.40 [facility] ([place] Comment on above: Performed By: #### L IPID, ANEU, ADIFF, FT4, TSH, CBC #### [address] [address] WBC 7.60 10 3/mcL Normal 4.60-10.80 [facility] ([place] Comment on above: Performed By: #### L IPID, ANEU, ADIFF, FT4, TSH, CBC #### [address] [address] FT4on 06-07-2021 Free T4 [Mass/Vol] 1.21 ng/dL Normal 0.76-1.46 [facility] ([place]) Comment on above: Performed By: #### A LT, HCGQ, LDLDCT, AST, LIPID #### [address] [address] LABORATORYOrdered By: Nithin Young on 06-07-2021 Basophil, Absolute 0.10 103/mcL Invalid Interpretation Code 0.00 - 0.19 10^3/mcL AO Auto Heme SS Basophils/100 WBC (Bld) 0.7 % Invalid Interpretation Code 0.0 - 2.5 % AO Auto Heme SS Eosinophil, Absolute 0.10 103/mcL Invalid Interpretation Code 0.00 - 0.40 10^3/mcL AO Auto Heme SS Eosinophils/100 WBC (Bld) 0.8 % Invalid Interpretation Code 0.0 - 7.0 % AO Auto Heme SS Erythrocyte distribution width (RBC) [Ratio] 12.1 % Invalid Interpretation Code 11.5 - 14.5 % AO Auto Heme SS Hematocrit (Bld) [Volume fraction] 39.6 % Invalid Interpretation Code 37.0 - 47.0 % AO Auto Heme SS Hemoglobin (Bld) [Mass/Vol] 13.5 G/dL Invalid Interpretation Code 12.0 - 16.0 G/dL AO Auto Heme SS Lymphocyte, Absolute 2.10 103/mcL Invalid Interpretation Code 0.77 - 3.85 10^3/mcL AO Auto Heme SS Lymphocytes/100 WBC (Bld) 27.1 % Invalid Interpretation Code 10.0 - 50.0 % AO Auto Heme SS MCH (RBC) [Entitic mass] 30.8 pg Invalid Interpretation Code 27.0 - 31.2 pg AO Auto Heme SS MCHC (RBC) [Mass/Vol] 34.0 G/dL Invalid Interpretation Code 33.0 - 37.0 G/dL AO Auto Heme SS MCV (RBC) [Entitic vol] 90.5 fL Invalid Interpretation Code 80.0 - 94.0 fL AO Auto Heme SS Monocyte, Absolute 0.50 103/mcL Invalid Interpretation Code 0.15 - 1.00 10^3/mcL AO Auto Heme SS Monocytes/100 WBC (Bld) 6.4 % Invalid Interpretation Code 1.7 - 13.0 % AO Auto Heme SS Neutrophil, Absolute 5.00 103/mcL Invalid Interpretation Code 2.85 - 6.16 10^3/mcL AO Auto Heme SS Neutrophils/100 WBC (Bld) 65.0 % Invalid Interpretation Code 37.0 - 80.0 % AO Auto Heme SS Platelet mean volume (Bld) [Entitic vol] 9.2 fL Invalid Interpretation Code 7.4 - 10.4 fL AO Auto Heme SS Platelets (Bld) [#/Vol] 337 103/mcL Invalid Interpretation Code 130 - 400 10^3/mcL AO Auto Heme SS RBC (Bld) [#/Vol] 4.37 106/mcL Invalid Interpretation Code 4.20 - 5.40 10^6/mcL AO Auto Heme SS WBC (Bld) [#/Vol] 7.60 103/mcL Invalid Interpretation Code 4.60 - 10.80 10^3/mcL AO Auto Heme SS LABORATORYOrdered By: Jozef Hahn on 06-07-2021 Cholesterol [Mass/Vol] 251 mg/dL Invalid Interpretation Code 0 - 200 mg/dL AO ADM SS Cholesterol in HDL [Mass/Vol] 55 mg/dL Invalid Interpretation Code 40 - 60 mg/dL AO ADM SS Cholesterol in LDL [Mass/Vol] 165 mg/dL Invalid Interpretation Code 0 - 130 mg/dL AO ADM SS Free T4 [Mass/Vol] 1.21 ng/dL Invalid Interpretation Code 0.76 - 1.46 ng/dL AO ADM SS Triglyceride [Mass/Vol] 154 mg/dL Invalid Interpretation Code 0 - 150 mg/dL AO ADM SS TSH Qn 0.52 m[IU]/L Invalid Interpretation Code 0.36 - 3.74 mcIU/mL AO ADM SS LIPIDon 06-07-2021 Cholesterol [Mass/Vol] 251 mg/dL High 0-200 [facility] ([place]) Comment on above: Result Comment: Chol esterol Reference Interval: Less than 200 Desirable 200-239 Borderline high risk 240 and above High risk Performed By: #### A LT, HCGQ, LDLDCT, AST, LIPID #### [address] [address] Cholesterol in HDL [Mass/Vol] 55 mg/dL Normal 40-60 [facility] ([place]) Comment on above: Performed By: #### A LT, HCGQ, LDLDCT, AST, LIPID #### [address] [address] Cholesterol in LDL [Mass/Vol] 165 mg/dL High 0-130 [facility] ([place]) Comment on above: Performed By: #### A LT, HCGQ, LDLDCT, AST, LIPID #### [address] [address] Triglyceride [Mass/Vol] 154 mg/dL High 0-150 [facility] ([place]) Comment on above: Result Comment: Trig lyceride Reference Interval: Less than 150 Normal 150-199 Borderline high risk 200-499 High risk 500 or higher Very high risk Performed By: #### A LT, HCGQ, LDLDCT, AST, LIPID #### [address] [address] TSHon 06-07-2021 TSH Qn 0.52 m[IU]/L Normal 0.36-3.74 [facility] ([place]) Comment on above: Performed By: #### A LT, HCGQ, LDLDCT, AST, LIPID #### [address] [address] Direct LDLon 02-23-2021 LDL Cholesterol Direct 149 mg/dL High <100 [facility] ([place]) Comment on above: Result Comment: <100 mg/dL, Optimal 100-129 mg/dL, Near optimal/above optimal 130-159 mg/dL, Borderline high 160-189 mg/dL, High >189 mg/dL, Very high Secondary prevention optimal LDL Cholesterol levels are recommended to be < 70 mg/dL Performed By: [facility] [address] [place] [address] Commercial Lending Relationship Manager: Tehron Smith III, M.D. CLIA#: [id number] Phone#: Performed By: #### A LT, HCGQ, LDLDCT, AST, LIPID #### [address] [address] VLDL Cholesterol Test Not Indicated Normal <30 [facility] ([place]) Comment on above: Result Comment: Perf ormed By: [facility] [address] [place] [address] Commercial Lending Relationship Manager: Theron Smith III, M.D. CLIA#: [id number] Phone#: Performed By: #### A LT, HCGQ, LDLDCT, AST, LIPID #### [address] [address] ALT/SGPTon 02-22-2021 ALT [Catalytic activity/Vol] 21 U/L Normal 14-59 [facility] ([place]) Comment on above: Performed By: #### A LT, HCGQ, LDLDCT, AST, LIPID #### [address] [address] Masoud 02-22-2021 AST [Catalytic activity/Vol] 17 U/L Normal 10-40 [facility] ([place]) Comment on above: Performed By: #### A LT, HCGQ, LDLDCT, AST, LIPID #### [address] [address] HCGQon 02-22-2021 hCG, quantitative <1.0 Normal [facility] ([place]) Comment on above: Result Comment: HCG Quantitative 3 Weeks Gestation mIU/mL 5.0 to 12.0 HCG Quantitative 4 Weeks Gestation mIU/mL 10.0 to 708.0 HCG Quantitative 5 Weeks Gestation mIU/mL 217.0 to 8245.0 HCG Quantitative 6 Weeks Gestation mIU/mL 152.0 to 32,177.0 HCG Quantitative 7 Weeks Gestation mIU/mL 4059.0 to 153,767.0 HCG Quantitative 8 Weeks Gestation mIU/mL 31,366.0 to 149,094.0 HCG Quantitative 9 Weeks Gestation mIU/mL 59,109.0 to 135,901.0 HCG Quantitative 10 Weeks Gestation mIU/mL 44,186.0 to 170,409.0 HCG Quantitative 12 Weeks Gestation mIU/mL 27,107.0 to 201,615.0 HCG Quantitative 14 Weeks Gestation mIU/mL 24,302.0 to 93,646.0 Performed By: #### A LT, HCGQ, LDLDCT, AST, LIPID #### [address] [address] LIPIDon 02-22-2021 Cholesterol [Mass/Vol] 232 mg/dL High 0-200 [facility] ([place]) Comment on above: Result Comment: Chol esterol Reference Interval: Less than 200 Desirable 200-239 Borderline high risk 240 and above High risk Performed By: #### A LT, HCGQ, LDLDCT, AST, LIPID #### [address] [address] Cholesterol in HDL [Mass/Vol] 56 mg/dL Normal 40-60 [facility] ([place]) Comment on above: Performed By: #### A LT, HCGQ, LDLDCT, AST, LIPID #### [address] [address] Cholesterol in LDL [Mass/Vol] 160 mg/dL High 0-130 [facility] ([place]) Comment on above: Performed By: #### A LT, HCGQ, LDLDCT, AST, LIPID #### [address] [address] Triglyceride [Mass/Vol] 81 mg/dL Normal 0-150 [facility] ([place]) Comment on above: Result Comment: Trig lyceride Reference Interval: Less than 150 Normal 150-199 Borderline high risk 200-499 High risk 500 or higher Very high risk Performed By: #### A LT, HCGQ, LDLDCT, AST, LIPID #### J Luis [address] [address] CNOVon 03-30-2018 CNOV Office Visit (UCWSTR) ANITACHRISTAL ([id number]) 1990 FDate Time Provider Department03/30/18 1:45 PM EAMON DAMON (GAIL) [facility] During your visit today, we recorded the following information about you: Temperature Pulse Respiration Blood pressure 99.1 degrees 80/minute 20/minute 122/64 Weight 64 kgEamon Damon APRN.CNP 03/30/2018 2:22 PM SignedSubjectiveHPIHPI Barb Howard is a 27 year old female who presents today for CC ofsore throat, h/a, fatigue, ear pain. This started 5 days ago. Has triedibuprofen. Symptoms are worsened by nothing, hx of migraines. Risk factorsnone..Patient presents with:Sore Throat: TodayHeadache: x 4-5 daysEar Pain: x 4-5 days right ear painFatigue: Since last weekPAST MEDICAL HISTORYDiagnosis Date- Asthma- PMH - PAST MEDICAL HISTORY OF Color Vision - Normal- Trauma history of fracture nose, right hand fractures, left legPAST SURGICAL HISTORYProcedure Laterality Date- PAST SURGICAL HISTORY OF wisdom teethALLERGIES Vicodin [Hydrocodone-Acetaminophe n]MEDICATIONSPrenatal Hsmhngeb-Uf-Fal-Fe-FA ( VITAMIN) tab Take 1 tablet by mouth.ALBUTEROL INHALATION Inhale as instructed.pyridoxine, vitamin B6, (VITAMIN B-6) 100 mg tablet Take 100 mg by mouth oncedaily.FAMILY HISTORYProblem Relation Age of Onset- Lipids Father- Alzheimer's Disease Maternal Grandmother- Diabetes Maternal Grandfather- Arthritis Paternal Grandfather- Prostate Cancer Paternal Grandfather and colon cancer- Emphysema Maternal Uncle- Colon Cancer Maternal UncleSocial HistorySubstance Use Topics- Smoking status: Never Smoker- Smokeless tobacco: Never Used- Alcohol use NoReview of SystemsConstitutional: Negative for chills, fever and weight loss.HENT: Positive for congestion and sore throat. Negative for ear pain andnosebleeds.Respiratory : Positive for cough. Negative for shortness of breath and wheezing.Cardiovascular: Negative for chest pain.Musculoskeletal: Negative for neck pain.Skin: Negative for itching and rash.ObjectiveBlood pressure 122/64, pulse 80, temperature 37.3 ?C (99.1 ?F), resp. rate 20,weight 64 kg (141 lb), unknown if currently .Physical ExamConstitutional: She is oriented to person, place, and time and well-developed,well-valdez shed, and in no distress. Non-toxic appearance. She does not have asickly appearance. No distress.HENT:Head: Normocephalic and atraumatic.Right Ear: Hearing, tympanic membrane, external ear and ear canal normal.Left Ear: Hearing, tympanic membrane, external ear and ear canal normal.Nose: Nose normal.Mouth/Throat: Uvula is midline and mucous membranes are normal. Oropharyngealexudate and posterior oropharyngeal erythema present. No posteriororopharyngeal edema or tonsillar abscesses.Eyes: Conjunctivae and lids are normal. Pupils are equal, round, and reactiveto light. Right eye exhibits no discharge. Left eye exhibits no discharge. Noscleral icterus.Neck: Trachea normal and normal range of motion. Neck supple.Cardiovascular: Normal rate, regular rhythm and normal heart sounds.Pulmonary/Chest: Effort normal and breath sounds normal.Lymphadenopathy: She has cervical adenopathy. Right cervical: Superficial cervical adenopathy present.Neurological: She is alert and oriented to person, place, and time.Skin: No rash noted. She is not diaphoretic. ASSESSMENT/PLAN:1. Sore throat - ICD9: 462, ICD10: J02.9- suspect viral- Rapid Strep negative in the office today and Throat culture pending- Discussed supportive care treatment with fluids, rest and analgesia.- The patient should follow up in 3-5 days if symptoms persist or worsen- Call back if drooling, increased temperature, symptoms of dehydration and/orstill sick in one week- RAPID STREP TEST B/O- GROUP A STREPTOCOCCUS BY PCRPrescription instructions reviewed with patient as applicable. Patient advisedif symptoms do not improve or if symptoms worsen sooner, to contact the officefor further evaluation by their primary care physician. Potential red flagsymptoms discussed with the patient. Reviewed appropriate action plan to takeif red flag symptoms occur. Patient agreeable to treatment plan.Chan Cespedes APRN.CNP 03/30/2018 2:11 PM Signed ASSESSMENT/PLAN:1. Sore throat - ICD9: 462, ICD10: J02.9- suspect viral- Rapid Strep negative in the office today and Throat culture pending- Discussed supportive care treatment with fluids, rest and analgesia.- The patient should follow up in 3-5 days if symptoms persist or worsen- Call back if drooling, increased temperature, symptoms of dehydration and/orstill sick in one week- RAPID STREP TEST B/O- GROUP A STREPTOCOCCUS BY PCRReferring Provider: SELF [200]Allergies As of Date: 03/30/2018 Noted Allergy ReactionVICODIN (HYDROCODONE-ACETAMINOPHE *07/26/2016 8 - GI Upset 11 - VomitingDate Reviewed: 03/30/2018Reviewed by: Eamon Damon - Fully AssessedReason for Visit: Sore Throat [200] Cmt: Today Headache [52] Cmt: x 4-5 days Ear Pain [817] Cmt: x 4-5 days right ear pain Fatigue [46] Cmt: Since last weekPrimary Visit Diagnosis:Sore throat [J02.9]Order(s):RAPID STREP TEST B/O [4129251] Order #: [id number] GROUP A STREPTOCOCCUS BY PCR [SQGASPCR] Order #: [id number] FUTURE predniSONE (DELTASONE) 20 mg tabletTake 2 tablets by mouth once daily for 5 days.Disp: 10 tabletRfl: 0Prescriptions as of 03/30/2018 Sig: VITAMIN,CALCIUM,MINE* Take 1 tablet by mouth. ALBUTEROL INHALATION Inhale as instructed. PREDNISONE 20 MG TABLET Take 2 tablets by mouth once * PYRIDOXINE (VITAMIN B6) 100 M* Take 100 mg by mouth once tod*Problem List As Of Date 03/30/2018 Noted Resolved Nausea/vomiting in [O21.9] INVALID FOR*11/14/2016 More... History of asthma [Z87.09] INVALID FOR* More... Patient requested diagnostic testing [Z01.89] INVALID FOR*11/14/2016 More... Encounter for supervision of normal first pregn*INVALID FOR* More... Anxiety [F41.9] INVALID FOR* Other instructions from your clinician: ASSESSMENT/PLAN: 1. Sore throat - ICD9: 462, ICD10: J02.9 - suspect viral - Rapid Strep negative in the office today and Throat culture pending - Discussed supportive care treatment with fluids, rest and analgesia. - The patient should follow up in 3-5 days if symptoms persist or worsen - Call back if drooling, increased temperature, symptoms of dehydration and/or still sick in one week - RAPID STREP TEST B/O - GROUP A STREPTOCOCCUS BY PCRPrescriptions ordered this encounter Disp Refills Start End PREDNISONE 20 MG TABLET 10 t* 0 03/30/2018 04/04/2018 Route: ORAL Sig: Take 2 tablets by mouth once daily for 5 days. Status:Closed by EAMON DAMON CNP on 03/30/18 Normal [facility] Group A Strep by PCRon 03-30 GAS Specimen Source Throat Swab Normal [facility] Comment on above: Performed By: #### G ASPCR ####[facility], [place] [phone] Group A Strep PCR Negative Normal [facility] Comment on above: Result Comment: This test was developed and its performance characteristics determined by [facility] ([facility]).It has not been cleared or approved by the FDA. [facility] is regulated under CLIA as qualified to perform high-complexity testing. This test is used for clinical purposes. It should not be regarded as investigational or for research. Performed By: #### G ASPCR ####[facility] [address], [place] [phone] PROGRESSon 03-30-2018 Protein mass conc HNO ID: [id number] thor: Eamon (Industrial [employer]itter) Kanwal: (none)Author Type: Nurse PractitionerType: Progress NotesFiled: 03/30/2018 2:22 PMNote Text:SubjectiveHPIHPI Barb Howard is a 27 year old female who presents today for CCof sore throat, h/a, fatigue, ear pain. This started 5 days ago. Hastried ibuprofen. Symptoms are worsened by nothing, hx of migraines. Riskfactors none..Patient presents with:Sore Throat: TodayHeadache: x 4-5 daysEar Pain: x 4-5 days right ear painFatigue: Since last weekPAST MEDICAL HISTORYDiagnosis Date- Asthma- PMH - PAST MEDICAL HISTORY OF Color Vision - Normal- Trauma history of fracture nose, right hand fractures, left legPAST SURGICAL HISTORYProcedure Laterality Date- PAST SURGICAL HISTORY OF wisdom teethALLERGIES Vicodin [Hydrocodone-Acetaminophe n]MEDICATIONSPrenatal Wlphafzj-Re-Cab-Fe-FA ( VITAMIN) tab Take 1 tablet bymouth.ALBUTEROL INHALATION Inhale as instructed.pyridoxine, vitamin B6, (VITAMIN B-6) 100 mg tablet Take 100 mg by mouthonce daily.FAMILY HISTORYProblem Relation Age of Onset- Lipids Father- Alzheimer's Disease Maternal Grandmother- Diabetes Maternal Grandfather- Arthritis Paternal Grandfather- Prostate Cancer Paternal Grandfather and colon cancer- Emphysema Maternal Uncle- Colon Cancer Maternal UncleSocial HistorySubstance Use Topics- Smoking status: Never Smoker- Smokeless tobacco: Never Used- Alcohol use NoReview of SystemsConstitutional: Negative for chills, fever and weight loss.HENT: Positive for congestion and sore throat. Negative for ear pain andnosebleeds.Respiratory : Positive for cough. Negative for shortness of breath andwheezing.Cardiovascula r: Negative for chest pain.Musculoskeletal: Negative for neck pain.Skin: Negative for itching and rash.ObjectiveBlood pressure 122/64, pulse 80, temperature 37.3 ?C (99.1 ?F), resp. rate20, weight 64 kg (141 lb), unknown if currently .Physical ExamConstitutional: She is oriented to person, place, and time andwell-developed, well-nourished, and in no distress. Non-toxic appearance.She does not have a sickly appearance. No distress.HENT:Head: Normocephalic and atraumatic.Right Ear: Hearing, tympanic membrane, external ear and ear canal normal.Left Ear: Hearing, tympanic membrane, external ear and ear canal normal.Nose: Nose normal.Mouth/Throat: Uvula is midline and mucous membranes are normal.Oropharyngeal exudate and posterior oropharyngeal erythema present. Noposterior oropharyngeal edema or tonsillar abscesses.Eyes: Conjunctivae and lids are normal. Pupils are equal, round, andreactive to light. Right eye exhibits no discharge. Left eye exhibits nodischarge. No scleral icterus.Neck: Trachea normal and normal range of motion. Neck supple.Cardiovascular: Normal rate, regular rhythm and normal heart sounds.Pulmonary/Chest: Effort normal and breath sounds normal.Lymphadenopathy: She has cervical adenopathy. Right cervical: Superficial cervical adenopathy present.Neurological: She is alert and oriented to person, place, and time.Skin: No rash noted. She is not diaphoretic. ASSESSMENT/PLAN:1. Sore throat - ICD9: 462, ICD10: J02.9- suspect viral- Rapid Strep negative in the office today and Throat culture pending- Discussed supportive care treatment with fluids, rest and analgesia.- The patient should follow up in 3-5 days if symptoms persist or worsen- Call back if drooling, increased temperature, symptoms of dehydrationand/or still sick in one week- RAPID STREP TEST B/O- GROUP A STREPTOCOCCUS BY PCRPrescription instructions reviewed with patient as applicable. Patientadvised if symptoms do not improve or if symptoms worsen sooner, tocontact the office for further evaluation by their primary care physician. Potential red flag symptoms discussed with the patient. Reviewedappropriate action plan to take if red flag symptoms occur. 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 Macedo Start: 02-06-2016 Ophthalmic examinati on and evaluation DR WISAM FOREMAN MD Comment on above: Dr. Mcnulty Immunizations Immunization Date Immunization Notes Care Provider Fa [facility] 02-05-2007 meningococcal polysaccharide (groups A, C, Y and W-135) diphtheria toxoid conjugate vaccine (MCV4P) DR WISAM FOREMAN MD [facility] 09-13-2002 hepatitis B pediatri c vaccine DR WISAM FOREMAN MD [facility] 05-03-2002 tetanus and diphther ia toxoids, adsorbed, preservative free, for adult use (5 Lf of tetanus toxoid and 2 Lf of diphtheria toxoid) DR WISAM FOREMAN MD [facility] 03-01-2002 measles/mumps/rubell a virus vaccine DR WISAM FOREMAN MD [facility] 08-13-1990 haemophilus influenz ae type b vaccine, PRP-T conjugate DR WISAM FOREMAN MD [facility] 08-13-1990 measles/mumps/rubell a virus vaccine DR WISAM FOREMAN MD [facility] Payers Date Payer Category Payer Unknown [id number] Private Health Insurance [id number] Social History Date Type Detail Facility Start: 10-01-2019 Never smoked t obacco (finding) [facility] Sex Assigned At Female [facility] Evaluation + Plan note Note Date & Type Note Facility Evaluation + Plan note No data available for this section [facility] Evaluation + Plan note LaboratoryRadiology Note Date & Type Note Facility Evaluation + Plan note Future Appointments Appointment Date:12/02/2022 01:30:00 PM Scheduled Provider:PEPPER KELLER Location:[facility] Appointment Type:PC OV Controlled Medication Future Scheduled TestsLipid Profile 10/08/21XR Chest 2 Views (PA & Lateral) 09/02/22 [facility] Discharge instructions Note Date & Type Note Facility Hospital Discharge instructions No data available for this section [facility] Progress note Note Date & Type Note Facility Progress note No data available for this section [facility] Summary Purpose Family History No Family History Records FoundNo Family History Records FoundNo Family History Records Found Advance Directives No Advanced Directives Records FoundNo Advanced Directives Records FoundNo Advanced Directives Records Found Additional Source Comments INFORMATION SOURCE (unrecogn ized section and content) DATE CREATED AUTHOR 04/07/2018 [facility] DATE CREATED AUTHOR AUTHOR'S ORGANIZ ATION 06/15/2021 [facility] DATE CREATED AUTHOR AUTHOR'S ORGANIZ ATION 12/10/2023 [facility] Care Team (unrecognized sect ion and content) Care Team Personnel Name: George Rios Role: Neurologist Name: PEPPER KELLER Position: P4 Advanced Practice Nurse Member Role: Primary Care Physician Address: Address: [address] [place] [address]- Care Team Related Persons Name: SANDY HOWARD FOR RECORDS PERTAINING TO PATIENTS WHO ARE OR HAVE BEEN ENROLLED IN A CHEMICAL DEPENDENCY/SUBSTANCEABUSE PROGRAM, SOME INFORMATION MAY BE OMITTED. This clinical summary was aggregated from multiple sources. Caution should be exercised in using it in the provision of clinical care. This summary normalizes information from multiple sources, and as a consequence, information in this document may materially change the coding, format and clinical context of patient data. In addition, data may be omitted in some cases. CLINICAL DECISIONS SHOULD BE BASED ON THE PRIMARY CLINICAL RECORDS. [employer] provides no warranty or guarantee of the accuracy or completeness of information in this document.
== END | disposition home or self-care (01) ==
LOC: OPUS 14:17
PROVIDERS: Referring Provider Obstetrics & Gynecology; Visit Provider Obstetrics & Gynecology
DX: N63.24 Unspecified lump in the left breast, lower inner quadrant (principal)
CPT/HCPCS: 76642